=== PATIENT | female | born 2000 | race American Indian/Alaskan Native ===

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

== ENCOUNTER 2021-03-25 13:24 | Outpatient (CLI) | payer OTHER ==
[2021-03-25 13:54] VITALS: BP 114/71
[2021-03-25 14:41] LABS: Bacteria,Urine 1+ /HPF (Negative); Bilirubin,Urine NEG (Negative); Blood,Urine NEG (Negative); Color,Urine Yellow (Yellow); Protein,Urine <15 mg/dL mg/dL (Negative); Urobilinogen,Urine < 2.0 mg/dL (<2.0)
== END 2021-03-25 15:53 | disposition home or self-care (01) ==
LOC: TRG 13:24 → APU 13:27 → TRG 15:53
PROVIDERS: ATTEND Obstetrics & Gynecology
DX: O26.893 Other specified pregnancy related conditions, third trimester (principal); R10.9 Unspecified abdominal pain; Z3A.33 33 weeks gestation of pregnancy
CPT/HCPCS: 59025; 81001; 87086

== ENCOUNTER 2021-03-29 22:39 | Observation (INO) | payer OTHER ==
[2021-03-30] MEDS ORDERED: LACTATED RINGERS 1,000 ML IV ONE (00:15)
[2021-03-30] MEDS ORDERED: NIFEdipine*For Tocolysis only* 10 MG CAPSULE PO ONE (01:12)
[2021-03-30] MEDS ORDERED: DOCUSATE SODIUM 100 MG CAP PO PRN (01:23)
[2021-03-30] MEDS ORDERED: MAGNESIUM HYDROXIDE (MOM) ORAL LIQD UDC PO PRN (01:23)
[2021-03-30] MEDS ORDERED: ONDANSETRON 4 MG/2 ML INJ IV PRN (01:23)
[2021-03-30] MEDS ORDERED: ALUM-MAG HYDROXIDE-SIMETHICONE 200-200-20MG/5ML ORAL LIQD 30 ML PO PRN (01:23)
[2021-03-30] MEDS ORDERED: ACETAMINOPHEN 500 MG TAB PO PRN (01:23)
[2021-03-30] MEDS ORDERED: diphenhydrAMINE 25 MG CAP PO PRN (01:23)
[2021-03-30 01:42] LABS: Bilirubin,Urine NEG (Negative); Blood,Urine MOD (Negative); Color,Urine Straw (Yellow); Protein,Urine <15 mg/dL mg/dL (Negative); Urobilinogen,Urine < 2.0 mg/dL (<2.0)
[2021-03-30 01:56] LABS: RBC,Urine < 1.0 /HPF (0.0-6.0); WBC,Urine < 1.0 /HPF (0.0-6.0)
--- NOTE | 2021-03-30 02:34 | History and Physical Report ---
History of Present Illness Date of examination: 03/30/21 Date of admission: 03/30/2021 Chief complaint: I've been having some vaginal spotting and contractions. History of present illness: Pt is a @ 34.1 wks who presented to triage with c/o contractions and spot ting. States that she notices spotting only when she is wiping. Contractions have been 1-2 minutes. Pt with continued ctxs despite interventions. Pt states that she has not had any water to drink. HILARY resulted as 6.6 Pt denies s/sx of SROM. Consulted with Dr. Hill. Will admit for observation. EDC Confirmation: 05/10/2021 Gestational Age: 34.1 weeks on admission Past History : 1 Term Births: 0 Premature Births: 0 Living Children: 0 Mult. Births: 0 Prev : 0 Elect. Ab: 0 Spont. Ab: 0 Ectopics: 0 Past Medical History: Reviewed history from 12/28/2019 and no changes required: G E R D s/p endoscopy (2019) Past Surgical History: Reviewed history from 11/14/2016 and no changes required: Negative Past Surgical History Family History Summary: First Degree Blood Relative - Has No Known Family History - Entered On: 09/19/2020 Risk Factors: Counseled to Quit/Cut Down: yes HIV High Risk Behavior: no Seatbelt Use: 100 % No Dietary Counseling Reason: pn yes Alcohol Use: no Drug Use: no Past Medical History Surgery (Non-cake wrapper): Negative Past Surgical History Abnormal PAP: negative LUIS Exposure: negative Infertility: negative Uterine Anomaly: negative Uterine Surgery (not C/S): negative Social Hx: Patient is single Smoking History: Patient has never smoked. student no E/T/D sexually active Infection History Hx of STD: none HIV Risk Eval: no Hepatitis B Risk Eval: low risk Genetic History Congenital Heart Defect: Mom: no Dad: no Obi Disease: Mom: no Dad: no Thalassemia Mom: no Dad: no Neural Tube Defect Mom: no Dad: no Down's Syndrome Mom: no Dad: no Hai-Sachs Mom: no Dad: no Sickle Cell Disease/Trait Mom: no Dad: no Hemophilia Mom: no Dad: no Muscular Dystrophy Mom: no Dad: no Cystic Fibrosis Mom: no Dad: no Moody Chorea Mom: no Dad: no Mental Retardation Mom: no Dad: no Fragile X Mom: no Dad: no Other Genetic/Chromosomal Disorder Mom: no Dad: no Child w/other defect Mom: no Dad: no Enviromental Exposures Xray Exposure: no Medication, drug, or alcohol use since LMP: no Chemical/Other Exposure: no Exposure to Cat Liter: no Hx of Parvovirus (Fifth Disease): no Occupational Exposure to Children: none Current Allergies: * SHELLFISH (Critical) * PEANUTS (Critical) Laboratory Results Past History Past Medical History: GERD Past Surgical History: other (endoscopy) Family/Genetic History: none Social history: no significant social history - Obstetrical History Expected Date of Delivery: 05/10/21 Actual Gestation: 34 Week(s) 1 Day(s) : 1 Para: 0 Hx # Term Pregnancies: 0 Number of Pregnancies: 0 Spontaneous Abortions: 0 Induced : 0 Number of Living Children: 0 Medications and Allergies Allergies Allergy/AdvReac Type Severity Reaction Status Date / Time peanut Allergy Vomiting Verified 03/25/21 13:56 shellfish derived Allergy Vomiting Verified 03/25/21 13:56 Home Medications Medication Instructions Recorded Confirmed Last Taken Type Pnv,Calcium 72/Iron/Folic Acid 1 tab PO DAILY 03/25/21 03/25/21 03/25/21 History [M-Josh Plus Tablet] Active Meds: Active Medications Acetaminophen (Acetaminophen 500 Mg Tab) 1,000 mg PO Q6H PRN PRN Reason: Pain MILD(1-3)/Fever >100.5/BRADY Al Hydrox/Mg Hydrox/Simethicone (Alum-Mag Hydroxide-Simethicone 124-225-51cq/5ml Oral Liqd 30 Ml) 30 ml PO Q6H PRN PRN Reason: Indigestion Diphenhydramine HCl (Diphenhydramine 25 Mg Cap) 25 mg PO Q6H PRN PRN Reason: Itching Docusate Sodium (Docusate Sodium 100 Mg Cap) 100 mg PO Q12H PRN PRN Reason: Constipation Magnesium Hydroxide (Magnesium Hydroxide (Mom) Oral Liqd Udc) 30 ml PO QHS PRN PRN Reason: Laxative Effect Multivitamins/Iron/Calcium ( [id number]-[id number] Fumarate-Folic Acid Vit Tab) 1 each PO QDAY VIOLET Ondansetron HCl (Ondansetron 4 Mg/2 Ml Inj) 4 mg IV Q6H PRN PRN Reason: Nausea And Vomiting Review of Systems All systems: negative - Vital Signs Vital signs: Vital Signs Pulse BP Pulse Ox 76 125/77 97 03/29/21 23:35 03/29/21 23:35 03/29/21 23:35 Temp Pulse Resp BP Pulse Ox 99 H 133/63 98 03/30/21 02:29 03/30/21 02:29 03/30/21 02:28 - Physical Exam Breasts: Positive: deferred Cardiovascular: Regular rate Lungs: Positive: Normal air movement Abdomen: Positive: normal appearance, soft Genitourinary (Female): Positive: normal external genitalia, normal perenium Vulva: both: normal Vagina: Positive: other (Moderate amount of yellow discharge seen. No active bleeding seen. ) Cervix: Positive: discharge (Yellow discharge noted. ), friable Uterus: Positive: enlarged (34.1 wks ) Extremities: Positive: normal - Obstetrical FHR: category 1 Uterine Contraction Monitor Mode: External Cervical Dilatation: 0 (Appears closed on speculum. ) Uterine Contraction Pattern: Regular Uterine Tone Measurement Phase: Resting Uterine Contraction Intensity: Mild Results All other labs normal. GBS UNKNOWN HBsAg Screen Negative Negative *1 RPR Non Reactive Non Reactive *2 Rubella Antibodies, IgG [L] <0.90 index Immune >0.99 *3 Non-immune <0.90 Equivocal 0.90 - 0.99 Immune >0.99 ABO Grouping O *4 Rh Factor Positive *5 Please note: Prior records for this patient's ABO / Rh type are not available for additional verification. Antibody Screen Negative Negative *6 WBC 9.9 x10E3/uL 3.4-10.8 *7 RBC 4.11 x10E6/uL 3.77-5.28 *8 Hemoglobin 12.1 g/dL 11.1-15.9 *9 Hematocrit 38.2 % 34.0-46.6 *10 MCV 93 fL 79-97 *11 MCH 29.4 pg 26.6-33.0 *12 MCHC 31.7 g/dL 31.5-35.7 *13 RDW 13.2 % 11.7-15.4 *14 Platelets 288 x10E3/uL 150-450 *15 Neutrophils 66 % Not Estab. *16 Lymphs 26 % Not Estab. *17 Monocytes 6 % Not Estab. *18 Eos 2 % Not Estab. *19 Basos 0 % Not Estab. *20 ! Immature Cells <No Reported Value> *21 Neutrophils (Absolute) 6.6 x10E3/uL 1.4-7.0 *22 Lymphs (Absolute) 2.6 x10E3/uL 0.7-3.1 *23 Monocytes(Absolute) 0.6 x10E3/uL 0.1-0.9 *24 Eos (Absolute) 0.2 x10E3/uL 0.0-0.4 *25 Baso (Absolute) 0.0 x10E3/uL 0.0-0.2 *26 ! Immature Granulocytes 0 % Not Estab. *27 ! Immature Grans (Abs) 0.0 x10E3/uL 0.0-0.1 *28 ! NRBC <No Reported Value> *29 Hematology Comments: <No Reported Value> *30 Tests: (2) HB Solu + Rflx Frac (225697) Hemoglobin (Hgb) Solubility Negative Negative *31 Tests: (3) HIV Ag/Ab with Reflex (191963) HIV Screen 4th Generation wRfx Non Reactive Non Reactive *32 Tests: (4) HCV Antibody reflex to ABNER ([id number]) HCV Ab <0.1 s/co ratio 0.0-0.9 *33 Tests: (5) Interpretation: ([id number]) ! Interpretation: SPRCS *34 Negative Not infected with HCV, unless recent infection is suspected or other evidence exists to indicate HCV infection. Assessment and Plan A: 20 y.o. @ 34.1 wks, contractions. HILARY of 6.6 on u/s during triage visit. - Patient Problems (1) labor in third trimester Current Visit: Yes Status: Acute Qualifiers: labor delivery status: without delivery Qualified Code(s): O60.03 - labor without delivery, third trimester Plan to address problem: Admit to labor and delivery for observation. Initiate IV. Continue with IV fluid resuscitation. Draw admission labs. GC/CH sample sent to lab. Ultrasound to check for placental location, abruption, HILARY. Wet prep collected and sent to lab. (2) with 34 completed weeks gestation Current Visit: Yes Status: Acute Plan to address problem: Contiguous EFM. Continue to monitor status though EFM. (3) Amniotic fluid index borderline low Current Visit: Yes Status: Acute Plan to address problem: HILARY 6.6 on u/s today. Repeat u/s ordered for 1400.
--- NOTE | 2021-03-30 02:37 | Ultrasound Report ---
ULTRASOUND OBSTETRIC LIMITED INDICATION / CLINICAL INFORMATION: r/o placental abruption, Cervical length, full HILARY. Clinical Gestational Age (GA) in weeks, days: 34, 7 TECHNIQUE: Transabdominal. COMPARISON: None available. FINDINGS: HEART RATE (beats per minute): 138 AMNIOTIC FLUID INDEX (cm) = 6.6 (normal = 7-24 cm) PRESENTATION: Cephalic. Single fetus. ADDITIONAL FINDINGS: Placenta within the fundus, grade 1. No evidence of placental abruption. Cervix as measured 3.1 cm. Endocervical canal is not well-visualized. IMPRESSION: 1. No evidence of abruption. 2. Single fetus with heart rate of 138 bpm. Signer Name: Akira Danielle II, MD Signed: 03/30/2021 2:32 AM Workstation Name: [id number]
[2021-03-30] MEDS ORDERED: NIFEdipine*For Tocolysis only* 10 MG CAPSULE PO SCH (03:00)
[2021-03-30] MEDS: LACTATED RINGERS 1,000 ML IV SCH ×2 (06:38→14:25)
--- NOTE | 2021-03-30 08:04 | Progress Note ---
Assessment and Plan Pt denies contractions, LOF, and VB at this time. Reports +FM. Pt is s/p Procardia dose; VSSAF, FHT's cat 1. POC reviewed with pt for repeat ultrasound this afternoon. Questions encouraged. No questions voiced. Pt verbalizes understanding. A: IUP @34.1 weeks Oligohydramnios, HILARY 6.6 P: continuous efm and toco Continue with IV fluids @125mL/hr Pt may eat breakfast GC/CH pending Repeat US today Wet prep WNL monitor for ssx of labor - Patient Problems (1) Amniotic fluid index borderline low Current Visit: Yes Status: Acute (2) with 34 completed weeks gestation Current Visit: Yes Status: Acute (3) labor in third trimester Current Visit: Yes Status: Acute Qualifiers: labor delivery status: without delivery Qualified Code(s): O60.03 - labor without delivery, third trimester (4) Rubella non-immune status, antepartum Current Visit: Yes Status: Acute Subjective - Subjective Date of service: 03/30/21 Principal diagnosis: IUP @34.1, Oligo Patient reports: movement normal, no new complaints, no loss of fluid, no vaginal bleeding, no contractions Objective - Vital Signs Vital Signs: Vital Signs - 12hr 03/29/21 03/29/21 03/29/21 23:35 23:40 23:45 Temperature Pulse Rate 76 77 78 Respiratory Rate Blood Pressure 125/77 O2 Sat by Pulse 97 96 97 Oximetry O2 Sat by Pulse Oximetry [ Bilateral] 03/29/21 03/29/21 03/30/21 23:50 23:55 00:00 Temperature Pulse Rate 77 82 75 Respiratory Rate Blood Pressure O2 Sat by Pulse 96 96 97 Oximetry O2 Sat by Pulse Oximetry [ Bilateral] 03/30/21 03/30/21 03/30/21 00:05 00:10 00:15 Temperature Pulse Rate 76 81 92 H Respiratory Rate Blood Pressure O2 Sat by Pulse 98 100 100 Oximetry O2 Sat by Pulse Oximetry [ Bilateral] 03/30/21 03/30/21 03/30/21 00:20 00:25 00:30 Temperature Pulse Rate 75 80 81 Respiratory Rate Blood Pressure O2 Sat by Pulse 99 97 98 Oximetry O2 Sat by Pulse Oximetry [ Bilateral] 03/30/21 03/30/21 03/30/21 00:39 00:44 00:49 Temperature Pulse Rate 76 75 65 Respiratory Rate Blood Pressure O2 Sat by Pulse 99 98 97 Oximetry O2 Sat by Pulse Oximetry [ Bilateral] 03/30/21 03/30/21 03/30/21 00:54 00:59 01:04 Temperature Pulse Rate 72 62 73 Respiratory Rate Blood Pressure O2 Sat by Pulse 96 97 99 Oximetry O2 Sat by Pulse Oximetry [ Bilateral] 03/30/21 03/30/21 03/30/21 01:09 01:14 01:19 Temperature Pulse Rate 65 76 72 Respiratory Rate Blood Pressure O2 Sat by Pulse 97 98 98 Oximetry O2 Sat by Pulse Oximetry [ Bilateral] 03/30/21 03/30/21 03/30/21 01:24 01:29 01:34 Temperature Pulse Rate 69 65 71 Respiratory Rate Blood Pressure O2 Sat by Pulse 98 98 100 Oximetry O2 Sat by Pulse Oximetry [ Bilateral] 03/30/21 03/30/21 03/30/21 01:39 01:44 01:49 Temperature Pulse Rate 71 71 76 Respiratory Rate Blood Pressure O2 Sat by Pulse 99 99 98 Oximetry O2 Sat by Pulse Oximetry [ Bilateral] 03/30/21 03/30/21 03/30/21 01:54 01:59 02:04 Temperature Pulse Rate 94 H 98 H 98 H Respiratory Rate Blood Pressure O2 Sat by Pulse 97 97 98 Oximetry O2 Sat by Pulse Oximetry [ Bilateral] 03/30/21 03/30/21 03/30/21 02:06 02:28 02:29 Temperature Pulse Rate 110 H 98 H 99 H Respiratory Rate Blood Pressure 133/63 O2 Sat by Pulse 94 98 Oximetry O2 Sat by Pulse Oximetry [ Bilateral] 03/30/21 03/30/21 03/30/21 02:33 02:38 02:43 Temperature Pulse Rate 94 H 89 90 Respiratory Rate Blood Pressure O2 Sat by Pulse 99 97 96 Oximetry O2 Sat by Pulse Oximetry [ Bilateral] 03/30/21 03/30/21 03/30/21 02:46 02:48 02:53 Temperature Pulse Rate 81 80 82 Respiratory Rate Blood Pressure O2 Sat by Pulse 94 96 96 Oximetry O2 Sat by Pulse Oximetry [ Bilateral] 03/30/21 03/30/21 03/30/21 02:58 03:03 03:08 Temperature Pulse Rate 87 102 H 84 Respiratory Rate Blood Pressure O2 Sat by Pulse 95 98 97 Oximetry O2 Sat by Pulse Oximetry [ Bilateral] 03/30/21 03/30/21 03/30/21 03:13 03:18 03:23 Temperature Pulse Rate 84 88 99 H Respiratory Rate Blood Pressure O2 Sat by Pulse 97 97 99 Oximetry O2 Sat by Pulse Oximetry [ Bilateral] 03/30/21 03/30/21 03/30/21 03:28 03:33 03:38 Temperature Pulse Rate 100 H 95 H 100 H Respiratory Rate Blood Pressure O2 Sat by Pulse 97 99 99 Oximetry O2 Sat by Pulse Oximetry [ Bilateral] 03/30/21 03/30/21 03/30/21 03:46 03:47 03:52 Temperature Pulse Rate 102 H 76 73 Respiratory Rate Blood Pressure O2 Sat by Pulse 81 L 100 97 Oximetry O2 Sat by Pulse Oximetry [ Bilateral] 03/30/21 03/30/21 03/30/21 03:57 04:02 04:07 Temperature Pulse Rate 70 73 70 Respiratory Rate Blood Pressure O2 Sat by Pulse 95 96 95 Oximetry O2 Sat by Pulse Oximetry [ Bilateral] 03/30/21 03/30/21 03/30/21 04:12 04:17 04:22 Temperature Pulse Rate 72 72 73 Respiratory Rate Blood Pressure O2 Sat by Pulse 95 96 95 Oximetry O2 Sat by Pulse Oximetry [ Bilateral] 03/30/21 03/30/21 03/30/21 04:27 04:32 04:37 Temperature Pulse Rate 72 71 69 Respiratory Rate Blood Pressure O2 Sat by Pulse 95 96 96 Oximetry O2 Sat by Pulse Oximetry [ Bilateral] 03/30/21 03/30/21 03/30/21 04:42 04:47 05:05 Temperature 98.7 F Pulse Rate 72 72 75 Respiratory 18 Rate Blood Pressure O2 Sat by Pulse 98 97 99 Oximetry O2 Sat by Pulse 99 Oximetry [ Bilateral] 03/30/21 03/30/21 03/30/21 05:06 06:18 06:23 Temperature Pulse Rate 74 65 80 Respiratory Rate Blood Pressure 121/84 O2 Sat by Pulse 98 96 Oximetry O2 Sat by Pulse Oximetry [ Bilateral] 03/30/21 03/30/21 03/30/21 06:28 06:33 06:35 Temperature Pulse Rate 72 72 73 Respiratory Rate Blood Pressure O2 Sat by Pulse 96 95 94 Oximetry O2 Sat by Pulse Oximetry [ Bilateral] 03/30/21 03/30/21 03/30/21 06:38 06:43 06:48 Temperature Pulse Rate 71 77 64 Respiratory Rate Blood Pressure O2 Sat by Pulse 95 97 98 Oximetry O2 Sat by Pulse Oximetry [ Bilateral] 03/30/21 03/30/21 03/30/21 06:53 07:07 07:12 Temperature Pulse Rate 63 74 71 Respiratory Rate Blood Pressure O2 Sat by Pulse 98 100 98 Oximetry O2 Sat by Pulse Oximetry [ Bilateral] 03/30/21 03/30/21 03/30/21 07:17 07:21 07:22 Temperature Pulse Rate 72 77 79 Respiratory Rate Blood Pressure O2 Sat by Pulse 97 86 98 Oximetry O2 Sat by Pulse Oximetry [ Bilateral] 03/30/21 03/30/21 03/30/21 07:27 07:32 07:37 Temperature Pulse Rate 77 79 74 Respiratory Rate Blood Pressure O2 Sat by Pulse 97 96 96 Oximetry O2 Sat by Pulse Oximetry [ Bilateral] 03/30/21 03/30/21 03/30/21 07:42 07:47 07:52 Temperature Pulse Rate 80 87 83 Respiratory Rate Blood Pressure O2 Sat by Pulse 95 95 98 Oximetry O2 Sat by Pulse Oximetry [ Bilateral] 03/30/21 07:57 Temperature Pulse Rate 73 Respiratory Rate Blood Pressure O2 Sat by Pulse 97 Oximetry O2 Sat by Pulse Oximetry [ Bilateral] - Exam Breasts: deferred Cardiovascular: Regular rate Lungs: Normal air movement Abdomen: Present: normal appearance. Absent: tenderness, guarding Uterus: Present: other (gravid) FHR: auscultation normal, category 1 Uterine Contraction Monitor Mode: External Uterine Contraction Pattern: Absent Extremities: normal - Labs Labs: Laboratory Results - last 24 hr 03/30/21 Unknown Urine Color Straw Urine Turbidity Clear Urine pH 6.0 Ur Specific [place] 1.003 Urine Protein <15 mg/dl Urine Glucose (UA) Neg Urine Ketones Neg Urine Blood Mod Urine Nitrite Neg Urine Bilirubin Neg Urine Urobilinogen < 2.0 Ur Leukocyte Esterase Neg Urine WBC (Auto) < 1.0 Urine RBC (Auto) < 1.0
[2021-03-30 08:11] LABS: Basophils % (Auto) 0.4 % (0.0-1.8); Eosinophils # (Auto) 0.2 K/mm3 (0.0-0.4); Eosinophils % (Auto) 1.8 % (0.0-4.3); Hematocrit 34.4 % (30.3-42.9); Hemoglobin 11.6 gm/dl (10.1-14.3); Lymphocytes # (Auto) 2.5 K/mm3 (1.2-5.4); Lymphocytes % (Auto) 24.6 % (13.4-35.0); Mean Corpuscular HGB Conc 34 % (30-34); Mean Corpuscular Volume 92 fl (79-97); Monocytes # (Auto) 0.7 K/mm3 (0.0-0.8); Monocytes % (Auto) 6.8 % (0.0-7.3); Platelet Count 257 K/mm3 (140-440); Red Blood Count 3.74 M/mm3 (3.65-5.03); Red Cell Distribution Width 13.2 % (13.2-15.2)
[2021-03-30] MEDS ORDERED: PRENATAL VIT27-FE FUMARATE-FOLIC ACID VIT TAB PO SCH (10:00)
--- NOTE | 2021-03-30 17:45 | Ultrasound Report ---
US OB LIMITED INDICATION / CLINICAL INFORMATION: Full HILARY. COMPARISON: Earlier today at 1:37 AM. FINDINGS: The HILARY is 13.4 cm with the largest pocket measuring 5.8 cm. The HILARY was 6.6 cm previously. presentation is cephalic. The heart rate is 112 bpm. Signer Name: Ivan Quiñones MD Signed: 03/30/2021 5:41 PM Workstation Name: [email or web address]
--- NOTE | 2021-03-30 17:57 | Discharge Summary ---
Providers - Providers Date of Admission: 03/30/21 01:23 Date of discharge: 03/30/21 Attending physician: PETR MIKE MD Primary care physician: PETR MIKE MD Hospitalization Reason for admission: IUP - , observation Discharge diagnosis: other (IUP ) Condition at discharge: Good Disposition: 01 HOME / SELF CARE / HOMELESS - Discharge Diagnoses (1) Amniotic fluid index borderline low Status: Acute Comment: HILARY now 13.8; Dr Rae made aware. Pt ok to discharge home. (2) with 34 completed weeks gestation Status: Acute (3) labor in third trimester Status: Acute Qualifiers: labor delivery status: without delivery Qualified Code(s): O60.03 - labor without delivery, third trimester (4) Rubella non-immune status, antepartum Status: Acute Plan - Provider Discharge Summary Activity: routine Diet: routine Instructions: routine Additional instructions: [] Smoking cessation referral if applicable(refer to patient education folder for contact #) [] Refer to [facility]'s [facility] Booklet Call your doctor immediately for: * Fever > 100.5 * vaginal bleeding * Severe persistent headache * Shortness of breath * Reddened, hot, painful area to leg or breast * leaking fluid suspicious of membrane rupture * more than 6 contractions per hour Please keep scheduled appointment next week for follow up visit with [facility]. Thank you! - Follow up plan Follow up: PETR MIKE MD [Primary Care Provider] - 7 Days
[2021-03-30 18:04] VITALS: BP 126/73
== END 2021-03-30 18:05 | disposition home or self-care (01) ==
LOC: TRG 22:39 → APU 23:07 → LD 03-30 01:23 → TRG 03-30 09:57
PROVIDERS: ADMIT Student in an Organized Health Care Education/Training Program; ATTEND Student in an Organized Health Care Education/Training Program
DX: O62.9 Abnormality of forces of labor, unspecified (principal); Z20.822 Contact with and (suspected) exposure to COVID-19; O26.853 Spotting complicating pregnancy, third trimester; O09.93 Supervision of high risk pregnancy, unspecified, third trimester; K21.9 Gastro-esophageal reflux disease without esophagitis; O60.03 Preterm labor without delivery, third trimester; O42.92 Full-term premature rupture of membranes, unspecified as to length of time between rupture and onset of labor; O35.3XX0 Maternal care for (suspected) damage to fetus from viral disease in mother, not applicable or unspecified; B06.9 Rubella without complication; Z3A.34 34 weeks gestation of pregnancy
CPT/HCPCS: 36415; 59025; 76815; 81001; 85025; 86850; 86900; 86901; 87210; 87591; 96360; G0378; J7120; U0003

== ENCOUNTER 2021-03-30 21:18 | Inpatient (IN) | payer OTHER ==
[2021-03-30] MEDS ORDERED: LACTATED RINGERS 1,000 ML ONE (22:16)
[2021-03-30] MEDS ORDERED: LACTATED RINGERS 1,000 ML IV ONE (22:39)
[2021-03-31] MEDS ORDERED: LOPERAMIDE 2 MG CAP PO PRN (00:08)
[2021-03-31] MEDS ORDERED: miSOPROStol 200 MCG TAB PR PRN (00:08)
[2021-03-31] MEDS ORDERED: TERBUTALINE 1 MG/1 ML INJ SUB-Q PRN (00:08)
[2021-03-31] MEDS ORDERED: ACETAMINOPHEN 325 MG TAB PO PRN (00:08)
[2021-03-31] MEDS ORDERED: OXYTOCIN 10 UNIT/1 ML INJ IM PRN (00:08)
[2021-03-31] MEDS ORDERED: MINERAL OIL 30 ML ORAL LIQD PO PRN (00:08)
[2021-03-31] MEDS ORDERED: ePHEDrine SULFATE 50 MG/1 ML INJ IV PRN (00:08)
[2021-03-31] MEDS ORDERED: BUTORPHANOL 2 MG/1 ML INJ IV PRN (00:08)
[2021-03-31] MEDS ORDERED: AMPICILLIN/NS 2 GM/100 ML 2 GM/100 ML BAG IV ONE ×2 (00:08→05:59)
[2021-03-31] MEDS ORDERED: CARBOPROST TROMETHAMINE 250 MCG/1 ML INJ IM PRN (00:08)
[2021-03-31] MEDS ORDERED: LIDOCAINE (2%) 20 MG/1 ML VIAL 20 ML MDV INFILTRATI ONE (00:08)
[2021-03-31] MEDS ORDERED: METHYLERGONOVINE MALEATE 0.2 MG/ML VIAL IM PRN (00:08)
[2021-03-31] MEDS ORDERED: ONDANSETRON 4 MG/2 ML INJ IV PRN (00:08)
--- NOTE | 2021-03-31 00:16 | History and Physical Report ---
History of Present Illness Date of examination: 03/31/21 Date of admission: 03/31/21 Chief complaint: "after I got home I felt a gush of fluid" History of present illness: Past History : 1 Term Births: 0 Premature Births: 0 Living Children: 0 Mult. Births: 0 Prev : 0 Elect. Ab: 0 Spont. Ab: 0 Ectopics: 0 Past Medical History: Reviewed history from 12/28/2019 and no changes required: G E R D s/p endoscopy (2019) Past Surgical History: Reviewed history from 11/14/2016 and no changes required: Negative Past Surgical History Family History Summary: First Degree Blood Relative - Has No Known Family History - Entered On: 09/19/2020 Risk Factors: Counseled to Quit/Cut Down: yes HIV High Risk Behavior: no Seatbelt Use: 100 % No Dietary Counseling Reason: pn yes Alcohol Use: no Drug Use: no Past Medical History Surgery (Non-customs broker): Negative Past Surgical History Abnormal PAP: negative LUIS Exposure: negative Infertility: negative Uterine Anomaly: negative Uterine Surgery (not C/S): negative Social Hx: Patient is single Smoking History: Patient has never smoked. student no E/T/D sexually active Infection History Hx of STD: none HIV Risk Eval: no Hepatitis B Risk Eval: low risk Genetic History Congenital Heart Defect: Mom: no Dad: no Obi Disease: Mom: no Dad: no Thalassemia Mom: no Dad: no Neural Tube Defect Mom: no Dad: no Down's Syndrome Mom: no Dad: no Hai-Sachs Mom: no Dad: no Sickle Cell Disease/Trait Mom: no Dad: no Hemophilia Mom: no Dad: no Muscular Dystrophy Mom: no Dad: no Cystic Fibrosis Mom: no Dad: no [place] Chorea Mom: no Dad: no Mental Retardation Mom: no Dad: no Fragile X Mom: no Dad: no Other Genetic/Chromosomal Disorder Mom: no Dad: no Child w/other defect Mom: no Dad: no Enviromental Exposures Xray Exposure: no Medication, drug, or alcohol use since LMP: no Chemical/Other Exposure: no Exposure to Cat Liter: no Hx of Parvovirus (Fifth Disease): no Occupational Exposure to Children: none Current Allergies: * SHELLFISH (Critical) * PEANUTS (Critical) Laboratory Results Past History Past Medical History: GERD Past Surgical History: other (endoscopy) Family/Genetic History: none Social history: no significant social history - Obstetrical History Expected Date of Delivery: 05/10/21 Actual Gestation: 34 Week(s) 2 Day(s) : 1 Para: 0 Hx # Term Pregnancies: 0 Number of Pregnancies: 0 Spontaneous Abortions: 0 Induced : 0 Number of Living Children: 0 Medications and Allergies Allergies Allergy/AdvReac Type Severity Reaction Status Date / Time peanut Allergy Vomiting Verified 03/25/21 13:56 shellfish derived Allergy Vomiting Verified 03/25/21 13:56 Home Medications Medication Instructions Recorded Confirmed Last Taken Type Pnv,Calcium 72/Iron/Folic Acid 1 tab PO DAILY 03/25/21 03/25/21 03/25/21 History [M- Plus Tablet] Active Meds: Active Medications Ephedrine Sulfate (Ephedrine Sulfate 50 Mg/1 Ml Inj) 10 mg IV Q2M PRN PRN Reason: Hypotension Lactated Ringer's (Lactated Ringers) 1,000 mls @ 125 mls/hr IV DIRECT VIOLET Lidocaine (Lidocaine (2%) 20 Mg/1 Ml Vial 20 Ml Mdv) 20 ml INFILTRATI ONCE ONE Stop: 03/31/21 00:09 Mineral Oil (Mineral Oil 30 Ml Oral Liqd) 30 ml PO QHS PRN PRN Reason: Constipation Terbutaline Sulfate (Terbutaline 1 Mg/1 Ml Inj) 0.25 mg SUB-Q ONCE PRN PRN Reason: Hyperstimulation/Hypertonicity Review of Systems All systems: negative Genitourinary: leakage of fluid, contractions - Vital Signs Vital signs: Vital Signs Pulse Pulse Ox 68 96 03/30/21 21:47 03/30/21 21:47 Temp Pulse Resp BP Pulse Ox 67 166/106 99 03/31/21 00:12 03/31/21 00:02 03/31/21 00:12 - Physical Exam Breasts: Positive: deferred Cardiovascular: Regular rate Lungs: Positive: Normal air movement Abdomen: Positive: normal appearance, soft. Negative: tenderness, guarding Genitourinary (Female): Positive: normal external genitalia, normal perenium Vulva: both: normal Vagina: Positive: normal moisture Cervix: Positive: friable Anus/Rectum: Positive: normal perianal skin Extremities: Positive: normal - Obstetrical FHR: auscultation normal, category 1 Uterine Contraction Monitor Mode: External Cervical Dilatation: 1.5 Cervical Effacement Percentage: 30 station: -2 Uterine Contraction Pattern: Regular Uterine Tone Measurement Phase: Resting Results Abnormal lab results 03/30/21 Range/Units 21:30 Membranes Rupture Positive A (Negative) All other labs normal. GBS UNKNOWN HBsAg Screen Negative Negative *1 RPR Non Reactive Non Reactive *2 Rubella Antibodies, IgG [L] <0.90 index Immune >0.99 *3 Non-immune <0.90 Equivocal 0.90 - 0.99 Immune >0.99 ABO Grouping O *4 Rh Factor Positive *5 Please note: Prior records for this patient's ABO / Rh type are not available for additional verification. Antibody Screen Negative Negative *6 WBC 9.9 x10E3/uL 3.4-10.8 *7 RBC 4.11 x10E6/uL 3.77-5.28 *8 Hemoglobin 12.1 g/dL 11.1-15.9 *9 Hematocrit 38.2 % 34.0-46.6 *10 MCV 93 fL 79-97 *11 MCH 29.4 pg 26.6-33.0 *12 MCHC 31.7 g/dL 31.5-35.7 *13 RDW 13.2 % 11.7-15.4 *14 Platelets 288 x10E3/uL 150-450 *15 Neutrophils 66 % Not Estab. *16 Lymphs 26 % Not Estab. *17 Monocytes 6 % Not Estab. *18 Eos 2 % Not Estab. *19 Basos 0 % Not Estab. *20 ! Immature Cells <No Reported Value> *21 Neutrophils (Absolute) 6.6 x10E3/uL 1.4-7.0 *22 Lymphs (Absolute) 2.6 x10E3/uL 0.7-3.1 *23 Monocytes(Absolute) 0.6 x10E3/uL 0.1-0.9 *24 Eos (Absolute) 0.2 x10E3/uL 0.0-0.4 *25 Baso (Absolute) 0.0 x10E3/uL 0.0-0.2 *26 ! Immature Granulocytes 0 % Not Estab. *27 ! Immature Grans (Abs) 0.0 x10E3/uL 0.0-0.1 *28 ! NRBC <No Reported Value> *29 Hematology Comments: <No Reported Value> *30 Tests: (2) HB Solu + Rflx Frac (939938) Hemoglobin (Hgb) Solubility Negative Negative *31 Tests: (3) HIV Ag/Ab with Reflex ([id number]) HIV Screen 4th Generation wRfx Non Reactive Non Reactive *32 Tests: (4) HCV Antibody reflex to ABNER ([id number]) HCV Ab <0.1 s/co ratio 0.0-0.9 *33 Tests: (5) Interpretation: ([id number]) ! Interpretation: SPRCS *34 Negative Not infected with HCV, unless recent infection is suspected or other evidence exists to indicate HCV infection. Assessment and Plan Pt reports when she got home she felt a gush of fluid. Speculum exam with small amount of vaginal pooling, clear fluid, cervix appears red and friable and cervical tissue started to bleed scantly when speculum adjusted. Dr. Rae notified and orders received for digital vaginal exam, IV antibiotics, and admit to labor. SVE 1.5/-2. Orders placed in EMR BP elevated after pt told she is ruptured. Repeat BP 147/89. Pt denies history of elevated BPs. CBC and urinalysis reviewed from 03/30/21, unremarkeable. Preeclampsia labs ordered. Dr. Rae made aware. New orders received for 24hr urine and Magnesium Sulfate IV. - Patient Problems (1) premature rupture of membranes Current Visit: Yes Status: Acute Plan to address problem: IV antibiotics ordered q4h monitor for changes in vital signs monitor for ssx of chorioamnionitis (2) with 34 completed weeks gestation Current Visit: No Status: Acute (3) labor in third trimester Current Visit: No Status: Acute Qualifiers: labor delivery status: without delivery Qualified Code(s): O60.03 - labor without delivery, third trimester Plan to address problem: continuous efm and toco BMZ ordered monitor for signs of distress, anticipate delivery NICU notified and consult ordered (4) Rubella non-immune status, antepartum Current Visit: No Status: Acute Plan to address problem: Plan to offer vaccination
[2021-03-31] MEDS ORDERED: MAGNESIUM SULFATE 4 GM/100 ML BAG IV ONE (00:57)
[2021-03-31] MEDS ORDERED: OXYTOCIN DRIP 30 UNITS/500 ML BAG IV SCH (01:00)
[2021-03-31] MEDS: LACTATED RINGERS 1,000 ML IV SCH ×2 (01:28→16:54)
[2021-03-31] MEDS: MAGNESIUM SULFATE 40GM/1000ML 40 GM/1,000 ML BAG IV SCH (02:23)
[2021-03-31] MEDS: AMPICILLIN/NS 1 GM/50 ML 1 GM/50 ML BAG IV SCH ×4 (02:26→18:53)
[2021-03-31] MEDS: BETAMET ACET/BETAMET NA PH 6 MG/ML INJ 5 ML MDV IM SCH (02:36)
[2021-03-31 02:50] LABS: Hemoglobin 11.8 gm/dl (10.1-14.3); Mean Corpuscular HGB Conc 35 % (30-34); Mean Corpuscular Volume 91 fl (79-97); Platelet Count 272 K/mm3 (140-440); Red Blood Count 3.75 M/mm3 (3.65-5.03)
[2021-03-31 03:03] LABS: Alanine Aminotransferase 6 units/L (7-56); Uric Acid 5.4 mg/dL (3.5-7.6)
[2021-03-31] MEDS ORDERED: AMPICILLIN 1 GM in SODIUM CHLORIDE 0.9% 50 ML IV SCH (04:00)
--- NOTE | 2021-03-31 08:21 | Progress Note ---
Assessment and Plan - Patient Problems (1) premature rupture of membranes Current Visit: Yes Status: Acute Plan to address problem: Latency antibiotics started BMZ x2 ordered. S/p 1 st dose Discussed with patient plan for IOL vs expectant management following completion of steroids. Will continue to monitor for signs of infection or distress (2) Rubella non-immune status, antepartum Current Visit: No Status: Acute Plan to address problem: MMR (3) Elevated blood pressure affecting , antepartum Current Visit: Yes Status: Acute Plan to address problem: Patient with elevated blood pressure at time of admission, currently on Mag SO4. 24 hr urine in process Will continue to monitor Subjective - Subjective Date of service: 03/31/21 Principal diagnosis: PPROM Interval history: Patient is a at 34w2d admitted with PPROM. Voices no complaints at this time. +FM. Some leakage and irregular contractions. Denies vaginal bleeding. Objective - Vital Signs Vital Signs: Vital Signs - 12hr 03/30/21 03/30/21 03/30/21 21:47 21:52 21:57 Temperature Pulse Rate 68 64 63 Respiratory Rate Blood Pressure O2 Sat by Pulse 96 97 98 Oximetry 03/30/21 03/30/21 03/30/21 22:01 22:02 22:07 Temperature Pulse Rate 57 L 67 63 Respiratory Rate Blood Pressure 137/88 O2 Sat by Pulse 97 97 Oximetry 03/30/21 03/30/21 03/30/21 22:12 22:17 22:22 Temperature Pulse Rate 63 76 62 Respiratory Rate Blood Pressure O2 Sat by Pulse 95 98 98 Oximetry 03/30/21 03/30/21 03/30/21 22:27 22:30 22:32 Temperature Pulse Rate 58 L 83 69 Respiratory Rate Blood Pressure 126/87 O2 Sat by Pulse 97 89 97 Oximetry 03/30/21 03/30/21 03/30/21 22:37 22:42 22:47 Temperature Pulse Rate 61 61 63 Respiratory Rate Blood Pressure O2 Sat by Pulse 98 98 98 Oximetry 03/30/21 03/30/21 03/30/21 22:52 22:57 23:02 Temperature Pulse Rate 63 60 65 Respiratory Rate Blood Pressure 132/88 O2 Sat by Pulse 97 96 96 Oximetry 03/30/21 03/30/21 03/30/21 23:07 23:12 23:17 Temperature Pulse Rate 63 64 63 Respiratory Rate Blood Pressure O2 Sat by Pulse 96 97 97 Oximetry 03/30/21 03/30/21 03/30/21 23:21 23:32 23:37 Temperature Pulse Rate 95 H 73 71 Respiratory Rate Blood Pressure O2 Sat by Pulse 93 99 98 Oximetry 03/30/21 03/30/21 03/30/21 23:42 23:47 23:52 Temperature Pulse Rate 63 60 70 Respiratory Rate Blood Pressure O2 Sat by Pulse 98 98 97 Oximetry 03/30/21 03/31/21 03/31/21 23:57 00:02 00:07 Temperature Pulse Rate 64 75 71 Respiratory Rate Blood Pressure 166/106 O2 Sat by Pulse 97 97 99 Oximetry 03/31/21 03/31/21 03/31/21 00:12 00:17 01:29 Temperature 98.8 F Pulse Rate 67 65 Respiratory Rate Blood Pressure O2 Sat by Pulse 99 98 Oximetry 03/31/21 03/31/21 03/31/21 02:20 03:13 03:18 Temperature 98.9 F Pulse Rate 75 76 Respiratory 20 Rate Blood Pressure O2 Sat by Pulse 95 96 Oximetry 03/31/21 03/31/21 03/31/21 03:23 03:28 03:33 Temperature 98.7 F Pulse Rate 77 78 76 Respiratory 18 Rate Blood Pressure 105/57 O2 Sat by Pulse 96 96 95 Oximetry 03/31/21 03/31/21 03/31/21 03:38 03:43 03:48 Temperature Pulse Rate 81 82 81 Respiratory Rate Blood Pressure O2 Sat by Pulse 95 95 95 Oximetry 03/31/21 03/31/21 03/31/21 03:53 03:58 04:03 Temperature Pulse Rate 81 80 80 Respiratory Rate Blood Pressure O2 Sat by Pulse 95 95 95 Oximetry 03/31/21 03/31/21 03/31/21 04:08 04:13 04:14 Temperature Pulse Rate 81 92 H 76 Respiratory Rate Blood Pressure O2 Sat by Pulse 97 95 94 Oximetry 03/31/21 03/31/21 03/31/21 04:18 04:23 04:24 Temperature 98.4 F Pulse Rate 78 80 82 Respiratory 18 Rate Blood Pressure 110/59 O2 Sat by Pulse 96 96 96 Oximetry 03/31/21 03/31/21 03/31/21 04:28 04:33 04:38 Temperature Pulse Rate 91 H 77 76 Respiratory Rate Blood Pressure O2 Sat by Pulse 96 96 96 Oximetry 03/31/21 03/31/21 03/31/21 04:43 04:48 04:52 Temperature Pulse Rate 78 76 75 Respiratory Rate Blood Pressure O2 Sat by Pulse 96 96 94 Oximetry 03/31/21 03/31/21 03/31/21 04:53 04:56 04:58 Temperature Pulse Rate 80 77 77 Respiratory Rate Blood Pressure 110/63 O2 Sat by Pulse 96 95 Oximetry 03/31/21 03/31/21 03/31/21 05:03 05:05 05:08 Temperature Pulse Rate 79 86 83 Respiratory Rate Blood Pressure O2 Sat by Pulse 95 94 95 Oximetry 03/31/21 03/31/21 03/31/21 05:13 05:18 05:19 Temperature Pulse Rate 88 86 81 Respiratory Rate Blood Pressure O2 Sat by Pulse 97 95 87 Oximetry 03/31/21 03/31/21 03/31/21 05:23 05:26 05:28 Temperature Pulse Rate 90 77 79 Respiratory Rate Blood Pressure 115/66 O2 Sat by Pulse 95 96 Oximetry 03/31/21 03/31/21 03/31/21 05:33 05:38 05:43 Temperature Pulse Rate 77 79 81 Respiratory Rate Blood Pressure O2 Sat by Pulse 96 96 96 Oximetry 03/31/21 03/31/21 03/31/21 05:48 05:53 05:56 Temperature Pulse Rate 81 79 78 Respiratory Rate Blood Pressure 110/62 O2 Sat by Pulse 95 95 Oximetry 03/31/21 03/31/21 03/31/21 05:58 06:00 06:03 Temperature 98.4 F Pulse Rate 81 82 Respiratory 18 Rate Blood Pressure O2 Sat by Pulse 95 96 95 Oximetry 03/31/21 03/31/21 03/31/21 06:07 06:08 06:10 Temperature Pulse Rate 88 83 75 Respiratory Rate Blood Pressure 111/66 O2 Sat by Pulse 94 96 Oximetry 03/31/21 03/31/21 03/31/21 06:13 06:15 06:18 Temperature Pulse Rate 98 H 86 77 Respiratory Rate Blood Pressure O2 Sat by Pulse 97 94 95 Oximetry 03/31/21 03/31/21 03/31/21 06:21 06:23 06:25 Temperature Pulse Rate 82 85 76 Respiratory Rate Blood Pressure 114/67 O2 Sat by Pulse 94 96 Oximetry 03/31/21 03/31/21 03/31/21 06:27 06:28 06:33 Temperature Pulse Rate 84 86 82 Respiratory Rate Blood Pressure O2 Sat by Pulse 93 95 95 Oximetry 03/31/21 03/31/21 03/31/21 06:38 06:43 06:48 Temperature Pulse Rate 87 78 79 Respiratory Rate Blood Pressure O2 Sat by Pulse 94 96 97 Oximetry 03/31/21 03/31/21 03/31/21 06:50 06:53 06:55 Temperature Pulse Rate 74 77 78 Respiratory Rate Blood Pressure O2 Sat by Pulse 93 95 92 Oximetry 03/31/21 03/31/21 03/31/21 06:56 06:58 07:01 Temperature Pulse Rate 75 76 78 Respiratory Rate Blood Pressure 109/64 O2 Sat by Pulse 96 94 Oximetry 03/31/21 03/31/21 03/31/21 07:03 07:08 07:13 Temperature Pulse Rate 77 77 83 Respiratory Rate Blood Pressure O2 Sat by Pulse 94 94 97 Oximetry 03/31/21 03/31/21 03/31/21 07:18 07:23 07:27 Temperature Pulse Rate 84 89 83 Respiratory Rate Blood Pressure 106/57 O2 Sat by Pulse 97 98 Oximetry 03/31/21 03/31/21 03/31/21 07:28 07:33 07:38 Temperature Pulse Rate 78 82 77 Respiratory Rate Blood Pressure O2 Sat by Pulse 97 98 97 Oximetry 03/31/21 03/31/21 03/31/21 07:43 07:48 07:53 Temperature Pulse Rate 79 80 83 Respiratory Rate Blood Pressure O2 Sat by Pulse 98 98 97 Oximetry 03/31/21 03/31/21 03/31/21 07:56 07:58 08:03 Temperature Pulse Rate 80 75 79 Respiratory Rate Blood Pressure 122/79 O2 Sat by Pulse 97 98 Oximetry 03/31/21 03/31/21 03/31/21 08:08 08:13 08:18 Temperature Pulse Rate 77 78 81 Respiratory Rate Blood Pressure O2 Sat by Pulse 97 97 97 Oximetry - Exam Abdomen: Present: soft FHR: category 1 Uterine Contraction Monitor Mode: External Uterine Contraction Pattern: Irregular - Labs Labs: Abnormal Labs 03/30/21 03/31/21 03/31/21 21:30 01:47 01:47 WBC 11.8 H MCHC 35 H RDW 13.0 L ALT 6 L Lactate Dehydrogenase 257 H Membranes Rupture Positive A Laboratory Results - last 24 hr 03/30/21 03/31/21 03/31/21 21:30 01:47 01:47 WBC 11.8 H RBC 3.75 Hgb 11.8 Hct 34.0 MCV 91 MCH 32 MCHC 35 H RDW 13.0 L Plt Count 272 Creatinine Estimated GFR Uric Acid AST ALT Lactate Dehydrogenase Membranes Rupture Positive A Syphilis IgG/IgM Ab Nonreactive Blood Type Antibody Screen 03/31/21 03/31/21 01:47 01:47 WBC RBC Hgb Hct MCV MCH MCHC RDW Plt Count Creatinine 1.0 Estimated GFR > 60 Uric Acid 5.4 AST 16 ALT 6 L Lactate Dehydrogenase 257 H Membranes Rupture Syphilis IgG/IgM Ab Blood Type O POSITIVE Antibody Screen Negative
[2021-03-31] MEDS: PRENATAL VIT27-FE FUMARATE-FOLIC ACID VIT TAB PO SCH (13:13)
[2021-03-31] MEDS: NITROFURANTOIN MONOHYD/M-CRYST 100 MG CAP PO SCH ×2 (13:13→22:14)
--- NOTE | 2021-03-31 14:32 | Consultation ---
Consult Note - Parent Education I met with parent(s) and discussed the following:: Need for NICU admission, Poss ible need for intubation and surfactant or other resp support, Temperature regulation, Head ultrasounds to evaluate IVH, Eye exams for ROP screening, Possible need for IV fluids/TPN and IV antibiotics, Possible need for umbilical lines, Importance of providing breast milk & encouraged pumping aft delivery, Donor breast milk if baby meets criteria after , Slow feeding advancement and monitoring of tolerance. NG/OG feeds, Need to monitor for jaundice, Data for survival & survival without significant co-morbidities Parent(s) demonstrated understanding of all the information:: Yes Assessment and Plan - Assessment Gestation:: 34.2 Additional Comment: Received Betamethasone 1 out of 2; currently on Mag Sulfate; PPROM and GBS unknow; on Ampicillin prophylaxis - Plan Plan: Agree with Mag & steroids Will attend delivery Please call NICU with questions
[2021-04-01] MEDS: BETAMET ACET/BETAMET NA PH 6 MG/ML INJ 5 ML MDV IM SCH (02:43)
[2021-04-01 05:50] LABS: Creatinine,Urine 25.7 mg/dL (0.1-20.0)
[2021-04-01 05:55] LABS: Creatinine 24 Hour,Urine 1.2 (0.8-2.8)
[2021-04-01] MEDS: MAGNESIUM SULFATE 40GM/1000ML 40 GM/1,000 ML BAG IV SCH (06:48)
[2021-04-01] MEDS: NITROFURANTOIN MONOHYD/M-CRYST 100 MG CAP PO SCH ×2 (09:54→22:13)
[2021-04-01] MEDS: PRENATAL VIT27-FE FUMARATE-FOLIC ACID VIT TAB PO SCH (09:54)
[2021-04-01] MEDS: AMPICILLIN/NS 1 GM/50 ML 1 GM/50 ML BAG IV SCH ×5 (09:55→22:48)
--- NOTE | 2021-04-01 11:18 | Progress Note ---
Assessment and Plan - Patient Problems (1) premature rupture of membranes Current Visit: Yes Status: Acute Plan to address problem: Latency antibiotics s/p BMZ x2 S/p NICU consultation Discussed with patient plan for IOL today due to PPROM and PreE. Discussed methods of induction, risks, benefits. Method will likely be low dose pitocin. May complete AM self care and will start IOL this afternoon. Patient voiced understanding and agreeable to the plan. Will continue to monitor for signs of infection or distress (2) Rubella non-immune status, antepartum Current Visit: No Status: Acute Plan to address problem: MMR (3) Elevated blood pressure affecting , antepartum Current Visit: Yes Status: Acute Plan to address problem: Patient with elevated blood pressure at time of admission. 24 hr urine resulted and elevated confirming PreE without severe features Reviewed with patient sever features including severe range BP, BRADY with scotoma, RUQ/epigastric pain. DIscussed if symptoms develop will require Mag SO4 for se izure prophylaxis BP WNL currently Will continue to monitor (4) Pre-eclampsia affecting puerperium Current Visit: Yes Status: Acute (5) Shortness of breath Current Visit: Yes Status: Acute Plan to address problem: H/o asthma. S/p respiratory intervention with imporvment of symptoms Discussed CXR for evaluation of pulmonary edema as patient has been on Magnesium Subjective - Subjective Principal diagnosis: PPROM Interval history: Patient is a at 34w3d admitted with PPROM. Voices no complaints at this time. SOB very early this AM, noting h/o asthma for which she occasionally uses an inhaler. +FM. Some leakage and irregular contractions. Denies vaginal bleeding. Patient reports: movement normal Objective - Vital Signs Vital Signs: Vital Signs - 12hr 03/31/21 03/31/21 03/31/21 23:15 23:18 23:20 Temperature Pulse Rate 73 94 H 77 Blood Pressure O2 Sat by Pulse 93 92 93 Oximetry O2 Sat by Pulse Oximetry [ Bilateral] 03/31/21 03/31/21 03/31/21 23:23 23:28 23:33 Temperature Pulse Rate 74 76 75 Blood Pressure O2 Sat by Pulse 93 93 93 Oximetry O2 Sat by Pulse Oximetry [ Bilateral] 03/31/21 03/31/21 03/31/21 23:38 23:43 23:48 Temperature Pulse Rate 76 76 78 Blood Pressure O2 Sat by Pulse 94 93 93 Oximetry O2 Sat by Pulse Oximetry [ Bilateral] 03/31/21 03/31/21 03/31/21 23:53 23:54 23:57 Temperature Pulse Rate 91 H 80 75 Blood Pressure 116/71 O2 Sat by Pulse 93 94 Oximetry O2 Sat by Pulse Oximetry [ Bilateral] 03/31/21 04/01/21 04/01/21 23:58 00:01 00:03 Temperature Pulse Rate 79 94 H 81 Blood Pressure O2 Sat by Pulse 97 94 93 Oximetry O2 Sat by Pulse Oximetry [ Bilateral] 04/01/21 04/01/21 04/01/21 00:08 00:09 00:13 Temperature Pulse Rate 76 84 77 Blood Pressure O2 Sat by Pulse 96 94 95 Oximetry O2 Sat by Pulse Oximetry [ Bilateral] 04/01/21 04/01/21 04/01/21 00:17 00:18 00:23 Temperature Pulse Rate 71 73 72 Blood Pressure O2 Sat by Pulse 94 95 95 Oximetry O2 Sat by Pulse Oximetry [ Bilateral] 04/01/21 04/01/21 04/01/21 00:28 00:29 00:33 Temperature Pulse Rate 74 74 72 Blood Pressure O2 Sat by Pulse 93 94 94 Oximetry O2 Sat by Pulse Oximetry [ Bilateral] 04/01/21 04/01/21 04/01/21 00:35 00:38 00:43 Temperature Pulse Rate 72 74 72 Blood Pressure O2 Sat by Pulse 94 94 93 Oximetry O2 Sat by Pulse Oximetry [ Bilateral] 04/01/21 04/01/21 04/01/21 00:44 00:48 00:49 Temperature Pulse Rate 73 76 73 Blood Pressure O2 Sat by Pulse 94 94 94 Oximetry O2 Sat by Pulse Oximetry [ Bilateral] 04/01/21 04/01/21 04/01/21 00:53 00:57 00:58 Temperature Pulse Rate 74 76 85 Blood Pressure 121/71 O2 Sat by Pulse 96 95 Oximetry O2 Sat by Pulse Oximetry [ Bilateral] 04/01/21 04/01/21 04/01/21 00:59 01:03 01:04 Temperature Pulse Rate 85 75 73 Blood Pressure O2 Sat by Pulse 94 95 94 Oximetry O2 Sat by Pulse Oximetry [ Bilateral] 04/01/21 04/01/21 04/01/21 01:08 01:13 01:14 Temperature Pulse Rate 83 81 80 Blood Pressure O2 Sat by Pulse 96 95 94 Oximetry O2 Sat by Pulse Oximetry [ Bilateral] 04/01/21 04/01/21 04/01/21 01:18 01:23 01:28 Temperature Pulse Rate 79 78 72 Blood Pressure O2 Sat by Pulse 96 95 96 Oximetry O2 Sat by Pulse Oximetry [ Bilateral] 04/01/21 04/01/21 04/01/21 01:32 01:33 01:38 Temperature Pulse Rate 74 70 71 Blood Pressure O2 Sat by Pulse 94 95 96 Oximetry O2 Sat by Pulse Oximetry [ Bilateral] 04/01/21 04/01/21 04/01/21 01:42 01:43 01:48 Temperature Pulse Rate 77 73 73 Blood Pressure O2 Sat by Pulse 94 97 97 Oximetry O2 Sat by Pulse Oximetry [ Bilateral] 04/01/21 04/01/21 04/01/21 01:53 01:57 01:58 Temperature Pulse Rate 75 70 71 Blood Pressure 112/65 O2 Sat by Pulse 96 97 Oximetry O2 Sat by Pulse Oximetry [ Bilateral] 04/01/21 04/01/21 04/01/21 02:03 02:08 02:13 Temperature Pulse Rate 77 77 75 Blood Pressure O2 Sat by Pulse 97 96 97 Oximetry O2 Sat by Pulse Oximetry [ Bilateral] 04/01/21 04/01/21 04/01/21 02:18 02:23 02:28 Temperature Pulse Rate 77 74 71 Blood Pressure O2 Sat by Pulse 96 96 97 Oximetry O2 Sat by Pulse Oximetry [ Bilateral] 04/01/21 04/01/21 04/01/21 02:33 02:38 02:43 Temperature Pulse Rate 73 71 93 H Blood Pressure O2 Sat by Pulse 98 97 96 Oximetry O2 Sat by Pulse Oximetry [ Bilateral] 04/01/21 04/01/21 04/01/21 02:46 02:48 02:53 Temperature Pulse Rate 64 86 74 Blood Pressure O2 Sat by Pulse 84 96 96 Oximetry O2 Sat by Pulse Oximetry [ Bilateral] 04/01/21 04/01/21 04/01/21 02:57 02:58 03:03 Temperature Pulse Rate 77 77 73 Blood Pressure 120/74 O2 Sat by Pulse 94 95 95 Oximetry O2 Sat by Pulse Oximetry [ Bilateral] 04/01/21 04/01/21 04/01/21 03:08 03:13 03:18 Temperature Pulse Rate 75 74 73 Blood Pressure O2 Sat by Pulse 96 96 96 Oximetry O2 Sat by Pulse Oximetry [ Bilateral] 04/01/21 04/01/21 04/01/21 03:23 03:27 03:28 Temperature Pulse Rate 75 78 72 Blood Pressure O2 Sat by Pulse 95 94 97 Oximetry O2 Sat by Pulse Oximetry [ Bilateral] 04/01/21 04/01/21 04/01/21 03:32 03:33 03:38 Temperature Pulse Rate 77 74 74 Blood Pressure O2 Sat by Pulse 94 96 95 Oximetry O2 Sat by Pulse Oximetry [ Bilateral] 04/01/21 04/01/21 04/01/21 03:43 03:48 03:53 Temperature Pulse Rate 83 83 74 Blood Pressure O2 Sat by Pulse 96 95 96 Oximetry O2 Sat by Pulse Oximetry [ Bilateral] 04/01/21 04/01/21 04/01/21 03:57 03:58 04:03 Temperature Pulse Rate 78 83 66 Blood Pressure 115/67 O2 Sat by Pulse 94 96 Oximetry O2 Sat by Pulse Oximetry [ Bilateral] 04/01/21 04/01/21 04/01/21 04:08 04:13 04:18 Temperature Pulse Rate 69 69 69 Blood Pressure O2 Sat by Pulse 96 96 96 Oximetry O2 Sat by Pulse Oximetry [ Bilateral] 04/01/21 04/01/21 04/01/21 04:23 04:28 04:33 Temperature Pulse Rate 68 69 68 Blood Pressure O2 Sat by Pulse 96 96 97 Oximetry O2 Sat by Pulse Oximetry [ Bilateral] 04/01/21 04/01/21 04/01/21 04:38 04:43 04:48 Temperature Pulse Rate 68 71 68 Blood Pressure O2 Sat by Pulse 96 96 96 Oximetry O2 Sat by Pulse Oximetry [ Bilateral] 04/01/21 04/01/21 04/01/21 04:53 04:57 04:58 Temperature Pulse Rate 69 67 86 Blood Pressure 109/61 O2 Sat by Pulse 95 99 Oximetry O2 Sat by Pulse Oximetry [ Bilateral] 04/01/21 04/01/21 04/01/21 05:03 05:04 05:08 Temperature Pulse Rate 75 81 74 Blood Pressure O2 Sat by Pulse 97 93 98 Oximetry O2 Sat by Pulse Oximetry [ Bilateral] 04/01/21 04/01/21 04/01/21 05:13 05:18 05:23 Temperature Pulse Rate 74 71 77 Blood Pressure O2 Sat by Pulse 98 97 98 Oximetry O2 Sat by Pulse Oximetry [ Bilateral] 04/01/21 04/01/21 04/01/21 05:28 05:33 05:38 Temperature Pulse Rate 72 79 75 Blood Pressure O2 Sat by Pulse 97 97 95 Oximetry O2 Sat by Pulse Oximetry [ Bilateral] 04/01/21 04/01/21 04/01/21 05:39 05:43 05:46 Temperature Pulse Rate 77 73 88 Blood Pressure O2 Sat by Pulse 94 96 94 Oximetry O2 Sat by Pulse Oximetry [ Bilateral] 04/01/21 04/01/21 04/01/21 05:48 05:53 05:57 Temperature Pulse Rate 71 69 72 Blood Pressure 111/69 O2 Sat by Pulse 96 96 Oximetry O2 Sat by Pulse Oximetry [ Bilateral] 04/01/21 04/01/21 04/01/21 05:58 06:03 06:08 Temperature Pulse Rate 69 76 69 Blood Pressure O2 Sat by Pulse 97 96 97 Oximetry O2 Sat by Pulse Oximetry [ Bilateral] 04/01/21 04/01/21 04/01/21 06:13 06:18 06:20 Temperature Pulse Rate 78 76 72 Blood Pressure O2 Sat by Pulse 97 96 94 Oximetry O2 Sat by Pulse Oximetry [ Bilateral] 04/01/21 04/01/21 04/01/21 06:23 06:28 06:31 Temperature Pulse Rate 75 75 74 Blood Pressure O2 Sat by Pulse 95 95 94 Oximetry O2 Sat by Pulse Oximetry [ Bilateral] 04/01/21 04/01/21 04/01/21 06:33 06:36 06:38 Temperature Pulse Rate 72 85 70 Blood Pressure O2 Sat by Pulse 96 94 94 Oximetry O2 Sat by Pulse Oximetry [ Bilateral] 04/01/21 04/01/21 04/01/21 06:42 06:43 06:48 Temperature Pulse Rate 78 91 H 81 Blood Pressure O2 Sat by Pulse 94 97 97 Oximetry O2 Sat by Pulse Oximetry [ Bilateral] 04/01/21 04/01/21 04/01/21 06:53 06:57 06:58 Temperature Pulse Rate 79 75 74 Blood Pressure 129/82 O2 Sat by Pulse 98 97 Oximetry O2 Sat by Pulse Oximetry [ Bilateral] 04/01/21 04/01/2122 07:03 07:08 07:13 Temperature Pulse Rate 78 77 84 Blood Pressure O2 Sat by Pulse 97 99 98 Oximetry O2 Sat by Pulse Oximetry [ Bilateral] 04/01/21 04/01/21 04/01/21 07:18 07:23 07:28 Temperature Pulse Rate 87 87 83 Blood Pressure O2 Sat by Pulse 99 97 98 Oximetry O2 Sat by Pulse Oximetry [ Bilateral] 04/01/21 04/01/21 04/01/21 07:32 07:33 07:38 Temperature 98.7 F Pulse Rate 87 91 H 84 Blood Pressure 128/87 O2 Sat by Pulse 98 97 Oximetry O2 Sat by Pulse Oximetry [ Bilateral] 04/01/21 04/01/21 04/01/21 07:43 07:45 07:48 Temperature Pulse Rate 82 79 Blood Pressure O2 Sat by Pulse 97 97 Oximetry O2 Sat by Pulse 97 Oximetry [ Bilateral] 04/01/21 04/01/21 04/01/21 07:53 07:57 07:58 Temperature Pulse Rate 76 81 94 H Blood Pressure 127/86 O2 Sat by Pulse 97 96 Oximetry O2 Sat by Pulse Oximetry [ Bilateral] 04/01/21 04/01/21 04/01/21 08:03 08:08 08:13 Temperature Pulse Rate 74 96 H 74 Blood Pressure O2 Sat by Pulse 98 98 98 Oximetry O2 Sat by Pulse Oximetry [ Bilateral] 04/01/21 04/01/21 04/01/21 08:18 08:23 08:28 Temperature Pulse Rate 77 91 H 95 H Blood Pressure O2 Sat by Pulse 98 98 98 Oximetry O2 Sat by Pulse Oximetry [ Bilateral] 04/01/21 04/01/21 04/01/21 08:33 08:53 08:58 Temperature Pulse Rate 84 86 86 Blood Pressure 123/75 O2 Sat by Pulse 98 98 98 Oximetry O2 Sat by Pulse Oximetry [ Bilateral] 04/01/21 04/01/21 04/01/21 09:03 09:08 09:13 Temperature Pulse Rate 81 90 90 Blood Pressure O2 Sat by Pulse 97 98 97 Oximetry O2 Sat by Pulse Oximetry [ Bilateral] 04/01/21 04/01/21 04/01/21 09:17 09:18 09:23 Temperature Pulse Rate 83 78 81 Blood Pressure O2 Sat by Pulse 94 96 99 Oximetry O2 Sat by Pulse Oximetry [ Bilateral] 04/01/21 04/01/21 04/01/21 09:25 09:28 09:34 Temperature Pulse Rate 79 79 83 Blood Pressure O2 Sat by Pulse 89 97 95 Oximetry O2 Sat by Pulse Oximetry [ Bilateral] 04/01/21 04/01/21 04/01/21 09:38 09:43 09:49 Temperature Pulse Rate 83 94 H 83 Blood Pressure O2 Sat by Pulse 97 97 98 Oximetry O2 Sat by Pulse Oximetry [ Bilateral] 04/01/21 04/01/21 04/01/21 09:53 09:58 10:03 Temperature Pulse Rate 79 85 80 Blood Pressure 120/77 O2 Sat by Pulse 97 97 98 Oximetry O2 Sat by Pulse Oximetry [ Bilateral] 04/01/21 04/01/21 10:09 10:13 Temperature Pulse Rate 89 84 Blood Pressure O2 Sat by Pulse 98 98 Oximetry O2 Sat by Pulse Oximetry [ Bilateral] - Exam Cardiovascular: Regular rate Lungs: Clear to auscultation, Normal air movement Abdomen: Present: soft FHR: category 1 Uterine Contraction Pattern: Absent Extremities: normal - Labs Labs: Abnormal Labs 03/30/21 03/31/21 03/31/21 21:30 00:59 01:47 WBC 11.8 H MCHC 35 H RDW 13.0 L Magnesium ALT Lactate Dehydrogenase Urine Creatinine 25.7 H Ur Total Protein 24 Hr 495.00 H Membranes Rupture Positive A 03/31/21 04/01/21 01:47 04:57 WBC MCHC RDW Magnesium 10.20 H ALT 6 L Lactate Dehydrogenase 257 H Urine Creatinine Ur Total Protein 24 Hr Membranes Rupture Laboratory Results - last 24 hr 03/31/21 03/31/21 04/01/21 00:59 11:20 04:57 Magnesium 10.20 H Urine Total Volume 4500 Urine Creatinine 25.7 H Ur Creatinine 24 Hour 1.2 Ur Total Protein 24 Hr 495.00 H Urine Total Protein 11 SARS-CoV-2 (PCR) Negative
--- NOTE | 2021-04-01 12:12 | XRay Report ---
CHEST 1 VIEW 04/01/2021 11:04 AM INDICATION / CLINICAL INFORMATION: SOB. COMPARISON: None available. FINDINGS: SUPPORT DEVICES: None. HEART / MEDIASTINUM: No significant abnormality. LUNGS / PLEURA: No significant pulmonary or pleural abnormality. No pneumothorax. ADDITIONAL FINDINGS: No significant additional findings. IMPRESSION: No acute abnormality. Signer Name: Melecio Greene MD Signed: 04/01/2021 12:08 PM Workstation Name: [id number]
[2021-04-01] MEDS ORDERED: OXYTOCIN DRIP 30 UNITS/500 ML BAG IV SCH (14:00)
[2021-04-01] MEDS: LACTATED RINGERS 1,000 ML IV SCH (14:25)
[2021-04-02] MEDS: AMPICILLIN/NS 1 GM/50 ML 1 GM/50 ML BAG IV SCH ×2 (04:09→08:15)
[2021-04-02] MEDS: LACTATED RINGERS 1,000 ML IV SCH ×2 (04:09→11:16)
--- NOTE | 2021-04-02 07:36 | Progress Note ---
Assessment and Plan A: 20 y.o. @ 34.4 wks, PPROM ~ 30 hours, IOL d/t Pre E and PPROM - Patient Problems (1) premature rupture of membranes Current Visit: Yes Status: Acute Plan to address problem: Continue with antibiotics during labor. Limit vaginal exams. Continue with IOL: Pitocin per protocol. Pain management: Epidural when pt request. Continue to monitor maternal temperature. Continue to monitor FHR, status through EFM. (2) Pre-eclampsia affecting puerperium Current Visit: Yes Status: Acute Plan to address problem: BPs WNL: continue to monitor for worsening s/sx of pre eclampsia. S/p Mag infusion. Discontinued d/t mag level of 10.2. Will continue to re-asses need to restart mag infusion during labor or after delivery. (3) with 34 completed weeks gestation Current Visit: No Status: Acute Plan to address problem: S/p BMZ X2. NICU at delivery. Continue to monitor status through EFM. Delayed cord clamping if not in distress at time of delivery. Subjective - Subjective Date of service: 04/02/21 Principal diagnosis: 34.4 wks, PPROM ~ 36 hours, IOL d/t Pre E Interval history: Pt would like an epidural for pain management. States that she does not need it right now, but would like it when she is feeling more ctxs. Denies BRADY, blurred vision, spots before her eyes, chest pain, shortness of breath, and upper abdominal pain. Patient reports: movement normal, contractions Objective - Vital Signs Vital Signs: Vital Signs - 12hr 04/01/21 04/01/21 04/01/21 19:35 19:40 19:41 Pulse Rate 76 77 75 Blood Pressure O2 Sat by Pulse 94 94 94 Oximetry 04/01/21 04/01/21 04/01/21 19:45 19:50 19:53 Pulse Rate 82 74 81 Blood Pressure O2 Sat by Pulse 98 98 94 Oximetry 04/01/21 04/01/21 04/01/21 19:55 20:00 20:01 Pulse Rate 78 77 78 Blood Pressure O2 Sat by Pulse 96 94 94 Oximetry 04/01/21 04/01/21 04/01/21 20:05 20:10 20:11 Pulse Rate 79 89 79 Blood Pressure O2 Sat by Pulse 97 97 93 Oximetry 04/01/21 04/01/21 04/01/21 20:15 20:18 20:20 Pulse Rate 81 81 81 Blood Pressure O2 Sat by Pulse 98 94 95 Oximetry 04/01/21 04/01/21 04/01/21 20:25 20:27 20:30 Pulse Rate 76 72 78 Blood Pressure 124/76 O2 Sat by Pulse 91 92 Oximetry 04/01/21 04/01/21 04/01/21 20:31 20:35 20:40 Pulse Rate 78 82 77 Blood Pressure O2 Sat by Pulse 93 95 94 Oximetry 04/01/21 04/01/21 04/01/21 20:45 21:05 21:07 Pulse Rate 101 H 75 90 Blood Pressure O2 Sat by Pulse 98 96 93 Oximetry 04/01/21 04/01/21 04/01/21 21:10 21:15 21:17 Pulse Rate 75 76 81 Blood Pressure O2 Sat by Pulse 96 96 91 Oximetry 04/01/21 04/01/21 04/01/21 21:20 21:22 21:25 Pulse Rate 75 83 83 Blood Pressure O2 Sat by Pulse 96 92 95 Oximetry 04/01/21 04/01/21 04/01/21 21:27 21:29 21:30 Pulse Rate 73 76 71 Blood Pressure 130/74 O2 Sat by Pulse 91 97 Oximetry 04/01/21 04/01/21 04/01/21 21:34 21:35 21:40 Pulse Rate 75 77 77 Blood Pressure O2 Sat by Pulse 93 96 95 Oximetry 04/01/21 04/01/21 04/01/21 21:41 21:45 21:50 Pulse Rate 76 71 76 Blood Pressure O2 Sat by Pulse 94 96 97 Oximetry 04/01/21 04/01/21 04/01/21 21:53 21:55 22:00 Pulse Rate 71 80 72 Blood Pressure O2 Sat by Pulse 94 93 93 Oximetry 04/01/21 04/01/21 04/01/21 22:05 22:10 22:15 Pulse Rate 77 73 78 Blood Pressure O2 Sat by Pulse 98 98 97 Oximetry 04/01/21 04/01/21 04/01/21 22:20 22:22 22:25 Pulse Rate 76 90 78 Blood Pressure O2 Sat by Pulse 99 84 96 Oximetry 04/01/21 04/01/21 04/01/21 22:47 22:48 22:52 Pulse Rate 82 75 70 Blood Pressure 134/62 O2 Sat by Pulse 81 L 94 Oximetry 04/01/21 04/01/21 04/01/21 22:53 22:57 22:59 Pulse Rate 71 71 76 Blood Pressure O2 Sat by Pulse 92 94 94 Oximetry 04/01/21 04/01/21 04/01/21 23:02 23:06 23:07 Pulse Rate 68 75 69 Blood Pressure O2 Sat by Pulse 96 88 98 Oximetry 04/01/21 04/01/21 04/01/21 23:12 23:17 23:19 Pulse Rate 71 70 93 H Blood Pressure O2 Sat by Pulse 96 97 85 Oximetry 04/01/21 04/01/21 04/01/21 23:22 23:24 23:27 Pulse Rate 70 72 67 Blood Pressure 128/74 O2 Sat by Pulse 95 93 93 Oximetry 04/01/21 04/01/21 04/01/21 23:31 23:32 23:37 Pulse Rate 64 65 68 Blood Pressure O2 Sat by Pulse 94 96 97 Oximetry 04/01/21 04/01/21 04/01/21 23:42 23:47 23:52 Pulse Rate 68 65 65 Blood Pressure O2 Sat by Pulse 97 96 95 Oximetry 04/01/21 04/02/21 04/02/21 23:57 00:00 00:02 Pulse Rate 68 66 66 Blood Pressure O2 Sat by Pulse 95 94 96 Oximetry 04/02/21 04/02/21 04/02/21 00:07 00:12 00:13 Pulse Rate 69 68 77 Blood Pressure O2 Sat by Pulse 96 97 94 Oximetry 04/02/21 04/02/21 04/02/21 00:17 00:22 00:27 Pulse Rate 62 68 64 Blood Pressure 129/75 O2 Sat by Pulse 95 96 96 Oximetry 04/02/21 04/02/21 04/02/21 00:32 00:37 00:42 Pulse Rate 67 67 73 Blood Pressure O2 Sat by Pulse 95 97 96 Oximetry 04/02/21 04/02/21 04/02/21 00:46 00:47 00:56 Pulse Rate 70 82 Blood Pressure O2 Sat by Pulse 94 73 L 35 L Oximetry 04/02/21 04/02/21 04/02/21 00:57 01:02 01:07 Pulse Rate 84 72 73 Blood Pressure O2 Sat by Pulse 82 L 100 97 Oximetry 04/02/21 04/02/21 04/02/21 01:10 01:12 01:17 Pulse Rate 71 67 69 Blood Pressure O2 Sat by Pulse 94 99 98 Oximetry 04/02/21 04/02/21 04/02/21 01:19 01:22 01:24 Pulse Rate 82 71 69 Blood Pressure O2 Sat by Pulse 90 93 94 Oximetry 04/02/21 04/02/21 04/02/21 01:27 01:32 01:33 Pulse Rate 69 78 62 Blood Pressure 124/78 O2 Sat by Pulse 92 93 94 Oximetry 04/02/21 04/02/21 04/02/21 01:37 01:42 01:47 Pulse Rate 64 68 69 Blood Pressure O2 Sat by Pulse 92 92 91 Oximetry 04/02/21 04/02/21 04/02/21 01:52 01:57 02:02 Pulse Rate 91 H 73 74 Blood Pressure O2 Sat by Pulse 90 91 91 Oximetry 04/02/21 04/02/21 04/02/21 02:07 02:12 02:17 Pulse Rate 75 75 74 Blood Pressure O2 Sat by Pulse 91 92 92 Oximetry 04/02/21 04/02/21 04/02/21 02:22 02:27 02:32 Pulse Rate 77 78 84 Blood Pressure 118/69 O2 Sat by Pulse 92 93 97 Oximetry 04/02/21 04/02/21 04/02/21 02:36 02:37 02:42 Pulse Rate 88 84 77 Blood Pressure O2 Sat by Pulse 93 96 95 Oximetry 04/02/21 04/02/21 04/02/21 02:43 02:47 02:49 Pulse Rate 81 74 77 Blood Pressure O2 Sat by Pulse 94 95 93 Oximetry 04/02/21 04/02/21 04/02/21 02:52 02:57 02:59 Pulse Rate 78 73 72 Blood Pressure O2 Sat by Pulse 96 95 94 Oximetry 04/02/21 04/02/21 04/02/21 03:02 03:07 03:12 Pulse Rate 72 73 72 Blood Pressure O2 Sat by Pulse 95 95 94 Oximetry 04/02/21 04/02/21 04/02/21 03:17 03:20 03:22 Pulse Rate 71 76 73 Blood Pressure O2 Sat by Pulse 94 94 94 Oximetry 04/02/21 04/02/21 04/02/21 03:27 03:32 03:37 Pulse Rate 71 75 76 Blood Pressure 111/67 O2 Sat by Pulse 94 94 94 Oximetry 04/02/21 04/02/21 04/02/21 03:42 03:43 03:47 Pulse Rate 89 78 73 Blood Pressure O2 Sat by Pulse 95 94 93 Oximetry 04/02/21 04/02/21 04/02/21 03:49 03:52 03:57 Pulse Rate 75 82 74 Blood Pressure O2 Sat by Pulse 93 96 95 Oximetry 04/02/21 04/02/21 04/02/21 03:58 04:02 04:04 Pulse Rate 76 80 82 Blood Pressure O2 Sat by Pulse 94 93 94 Oximetry 04/02/21 04/02/21 04/02/21 04:07 04:10 04:12 Pulse Rate 78 75 74 Blood Pressure O2 Sat by Pulse 95 94 94 Oximetry 04/02/21 04/02/21 04/02/21 04:15 04:17 04:21 Pulse Rate 77 77 80 Blood Pressure O2 Sat by Pulse 94 95 94 Oximetry 04/02/21 04/02/21 04/02/21 04:22 04:27 04:29 Pulse Rate 75 77 75 Blood Pressure 112/66 O2 Sat by Pulse 94 95 Oximetry 04/02/21 04/02/21 04/02/21 04:32 04:37 04:40 Pulse Rate 72 77 73 Blood Pressure O2 Sat by Pulse 94 94 94 Oximetry 04/02/21 04/02/21 04/02/21 04:42 04:46 04:47 Pulse Rate 76 77 74 Blood Pressure O2 Sat by Pulse 94 94 95 Oximetry 04/02/21 04/02/21 04/02/21 04:52 04:57 04:58 Pulse Rate 72 75 75 Blood Pressure O2 Sat by Pulse 95 95 94 Oximetry 04/02/21 04/02/21 04/02/21 05:02 05:03 05:07 Pulse Rate 78 75 92 H Blood Pressure O2 Sat by Pulse 94 94 94 Oximetry 04/02/21 04/02/21 04/02/21 05:08 05:12 05:13 Pulse Rate 86 80 81 Blood Pressure O2 Sat by Pulse 93 94 94 Oximetry 04/02/21 04/02/21 04/02/21 05:17 05:18 05:22 Pulse Rate 78 76 86 Blood Pressure O2 Sat by Pulse 94 94 95 Oximetry 04/02/21 04/02/21 04/02/21 05:24 05:27 05:28 Pulse Rate 77 79 81 Blood Pressure 119/61 O2 Sat by Pulse 94 95 Oximetry 04/02/21 04/02/21 04/02/21 05:43 05:44 05:49 Pulse Rate 53 L 83 77 Blood Pressure O2 Sat by Pulse 89 83 L 96 Oximetry 04/02/21 04/02/21 04/02/21 05:51 05:54 05:57 Pulse Rate 77 76 75 Blood Pressure O2 Sat by Pulse 93 94 94 Oximetry 04/02/21 04/02/21 04/02/21 05:59 06:03 06:04 Pulse Rate 70 72 83 Blood Pressure O2 Sat by Pulse 94 94 94 Oximetry 04/02/21 04/02/21 04/02/21 06:09 06:14 06:19 Pulse Rate 80 73 71 Blood Pressure O2 Sat by Pulse 97 97 95 Oximetry 04/02/21 04/02/21 04/02/21 06:24 06:27 06:29 Pulse Rate 73 71 71 Blood Pressure 123/60 O2 Sat by Pulse 97 95 Oximetry 04/02/21 04/02/21 04/02/21 06:34 06:39 06:43 Pulse Rate 75 73 75 Blood Pressure O2 Sat by Pulse 96 96 94 Oximetry 04/02/21 04/02/21 04/02/21 06:44 06:49 06:50 Pulse Rate 72 72 74 Blood Pressure O2 Sat by Pulse 96 95 94 Oximetry 04/02/21 04/02/21 04/02/21 06:54 06:55 06:59 Pulse Rate 71 73 76 Blood Pressure O2 Sat by Pulse 95 94 95 Oximetry 04/02/21 04/02/21 04/02/21 07:00 07:04 07:07 Pulse Rate 81 79 79 Blood Pressure O2 Sat by Pulse 93 96 94 Oximetry 04/02/21 04/02/21 04/02/21 07:09 07:14 07:19 Pulse Rate 70 69 70 Blood Pressure O2 Sat by Pulse 96 95 94 Oximetry 04/02/21 04/02/21 04/02/21 07:24 07:26 07:27 Pulse Rate 71 72 77 Blood Pressure 127/80 O2 Sat by Pulse 94 93 Oximetry 04/02/21 07:29 Pulse Rate 75 Blood Pressure O2 Sat by Pulse 95 Oximetry - Exam Narrative Exam: Per RN, pt had a cervical exam @ 0600am and was found to be 3/70/-1. Will limit vaginal exams. Breasts: deferred Cardiovascular: Regular rate Lungs: Normal air movement Abdomen: Present: normal appearance, soft FHR: category 1 Uterine Contraction Monitor Mode: External Cervical Dilatation: 3 (Per overnight associate RN) Cervical Effacement Percentage: 70 station: -1 Uterine Contraction Pattern: Regular Uterine Tone Measurement Phase: Resting Uterine Contraction Intensity: Moderate Extremities: normal Deep Tendon Reflex Grade: Normal +2 - Labs Labs: Abnormal Labs 03/30/21 03/31/21 03/31/21 21:30 00:59 01:47 WBC 11.8 H MCHC 35 H RDW 13.0 L Magnesium ALT Lactate Dehydrogenase Urine Creatinine 25.7 H Ur Total Protein 24 Hr 495.00 H Membranes Rupture Positive A 03/31/21 04/01/21 01:47 04:57 WBC MCHC RDW Magnesium 10.20 H ALT 6 L Lactate Dehydrogenase 257 H Urine Creatinine Ur Total Protein 24 Hr Membranes Rupture
[2021-04-02] MEDS ORDERED: OXYTOCIN DRIP 30,000 MILLIUNITS/500 ML BAG IV ONE (08:00)
[2021-04-02] MEDS: NITROFURANTOIN MONOHYD/M-CRYST 100 MG CAP PO SCH (10:09)
[2021-04-02] MEDS: PRENATAL VIT27-FE FUMARATE-FOLIC ACID VIT TAB PO SCH (10:09)
--- NOTE | 2021-04-02 12:17 | Procedure Note ---
OB Delivery Note - Delivery Date of Delivery: 04/02/21 [employer] Machine Operator: DERRICK NOVAK Estimated blood loss: 100cc - Vaginal Delivery presentation: vertex Delivery position: OA Intrapartum events: labor-<37 weeks, PROM->1hr before delivery, preeclampsia Delivery induction: oxytocin Delivery augmentation: pitocin Delivery monitor: external FHT, external uterine Route of delivery: Delivery placenta: spontaneous Delivery cord: 3 umbilical vessels Episiotomy: none Delivery laceration: other (vaginal wall abrasions.) Anesthesia: none Delivery comments: Pt with urge to push. C/'C+2 with BBOW. SROM @ delivery for clear fluid. viable male infant. to mother's abdomen for skin to skin. Cord cut and clamped after 45 seconds. handed to NICU team for evaluation. Spontaneous delivery of placenta, intact, 3 vessels noted. Placenta to pathology d/t rupture, delivery, and pre eclampsia. Fundus firm, minimal bleeding noted. Perineum and vagina inspected, vaginal wall abrasions noted. Consulted with Dr. Verma. Will not restart mag at this time as patient is asymptomatic and has normal BP's (Mag level on 04/01 was 10.2 and mag infusion was stopped at that time). Sponges, instruments counted and correct. Apgars 8,9. Weight 4-5. EBL 100ml. Infant taken to NICU and patient left in care of nurse in stable condition. - A at 1 minute: 8 at 5 minutes: 8 (4-5) Gender: Male
[2021-04-02] MEDS ORDERED: IBUPROFEN 800 MG TAB PO NR (13:00)
[2021-04-02] MEDS ORDERED: diphenhydrAMINE 25 MG CAP PO PRN (14:17)
[2021-04-02] MEDS ORDERED: oxyCODONE /ACETAMINOPHEN 5-325MG TAB PO PRN (14:17)
[2021-04-02] MEDS ORDERED: PROMETHAZINE 25 MG RECT SUPP PR PRN (14:17)
[2021-04-02] MEDS ORDERED: OXYTOCIN DRIP 30 UNITS/500 ML BAG IV SCH (14:17)
[2021-04-02] MEDS ORDERED: ACETAMINOPHEN 325 MG TAB PO PRN (14:17)
[2021-04-02] MEDS ORDERED: BENZOCAINE/MENTHOL 20/0.5% TOP SPRAY 56 GM TP PRN (14:17)
[2021-04-02] MEDS ORDERED: PROMETHAZINE 25 MG TAB PO PRN (14:17)
[2021-04-02] MEDS ORDERED: ONDANSETRON 4 MG/2 ML INJ IV PRN (14:17)
[2021-04-02] MEDS ORDERED: MAGNESIUM HYDROXIDE (MOM) ORAL LIQD UDC PO PRN (14:17)
[2021-04-02] MEDS ORDERED: LANOLIN/ZINC/DIMETHICONE (LANSINOH) 7 GM TP PRN ×2 (14:17)
[2021-04-02] MEDS ORDERED: WITCH HAZEL/ GLYCERIN PAD TP PRN (14:17)
[2021-04-02] MEDS: IBUPROFEN 800 MG TAB PO SCH ×2 (14:51→20:29)
[2021-04-02] MEDS: DOCUSATE SODIUM 100 MG CAP PO SCH (22:54)
[2021-04-03 01:24] LABS: Hematocrit 29.9 % (30.3-42.9)
[2021-04-03] MEDS: IBUPROFEN 800 MG TAB PO SCH ×2 (04:47→16:14)
[2021-04-03] MEDS ORDERED: TETANUS,DIPH,PERTUSS(ACELL) VACCINE 0.5 ML SYRINGE IM ONE (06:00)
--- NOTE | 2021-04-03 08:14 | Progress Note ---
Assessment and Plan Pt doing well, in NICU holding baby. No complaints or concerns at this time. Plans to breast feed, and denies desires for BC.VSSAF. H/H 10.0/29.9 - Patient Problems (1) (normal spontaneous vaginal delivery) Current Visit: Yes Status: Acute Plan to address problem: Continue pathway. Plan to discharge tomorrow. (2) Pre-eclampsia affecting puerperium Current Visit: Yes Status: Acute Plan to address problem: Continue to monitor BP closely Denies s/s of PreE Subjective - Subjective Date of service: 04/03/21 Principal diagnosis: day #1 s/p w/ pre-e Patient reports: appetite normal, voiding normally, pain well controlled, ambulating normally, no dizzy ambulation, no nauseated : in NICU Objective - Vital Signs Latest vital signs: Vital Signs Temp Pulse Resp BP BP Pulse Ox Pulse Ox 04/03/21 01:15 98.1 F 72 20 123/77 96 04/02/21 22:45 99 04/02/21 20:25 98.6 F 69 20 106/78 91 04/02/21 14:17 98.6 F 86 16 140/86 99 99 04/02/21 13:23 75 132/85 04/02/21 13:21 68 33 L 04/02/21 13:18 73 99 04/02/21 13:13 68 87 04/02/21 13:08 76 95 04/02/21 12:25 77 70 L 04/02/21 12:24 77 71 L 04/02/21 12:19 91 H 78 L 04/02/21 12:14 74 94 04/02/21 12:13 82 89 04/02/21 12:09 97 H 100 04/02/21 12:06 57 L 04/02/21 12:04 83 95 04/02/21 12:03 86 129/74 04/02/21 11:59 86 93 04/02/21 11:58 83 95 04/02/21 11:53 86 100 04/02/21 11:52 91 04/02/21 11:47 90 59 L 04/02/21 11:42 84 84 04/02/21 11:41 70 L 04/02/21 11:37 91 H 66 L 04/02/21 11:36 63 L 04/02/21 11:32 84 85 04/02/21 11:30 87 74 L 04/02/21 11:28 80 139/87 04/02/21 11:26 212 H 86 04/02/21 11:25 26 L 92 04/02/21 11:21 83 100 04/02/21 11:19 93 H 92 04/02/21 11:16 89 97 04/02/21 11:14 87 94 04/02/21 11:11 91 H 97 04/02/21 11:06 86 90 04/02/21 10:56 69 100 04/02/21 10:53 80 78 L 04/02/21 10:51 85 85 04/02/21 10:46 90 96 04/02/21 10:41 75 93 04/02/21 10:38 78 94 04/02/21 10:36 84 93 04/02/21 10:31 76 94 04/02/21 10:22 83 97 04/02/21 10:17 77 98 04/02/21 10:15 86 93 04/02/21 10:12 85 93 04/02/21 10:10 87 93 04/02/21 10:07 86 97 04/02/21 10:03 80 94 04/02/21 10:02 86 98 04/02/21 09:57 60 85 04/02/21 09:30 95 H 93 04/02/21 09:27 89 123/73 91 04/02/21 09:24 86 93 04/02/21 09:22 81 91 04/02/21 09:18 80 94 04/02/21 09:17 85 94 04/02/21 09:13 83 93 04/02/21 09:12 86 95 04/02/21 09:07 84 93 04/02/21 09:05 98 04/02/21 09:02 90 94 04/02/21 08:57 89 91 04/02/21 08:53 93 H 94 04/02/21 08:52 87 99 04/02/21 08:47 90 96 04/02/21 08:42 99 H 94 04/02/21 08:23 81 92 04/02/21 08:21 83 94 04/02/21 08:18 84 04/02/21 08:16 91 98 Intake and Output 04/02/21 04/03/21 04/03/21 23:59 07:59 15:59 Intake Total 600 360 Output Total 500 Balance 100 360 Intake: Oral 600 360 Output: Urine 500 Void 500 Other: Total, Intake Amount 240 120 Total, Output Amount 300 # Voids Void 1 - Exam Breasts: Present: normal Abdomen: Present: normal appearance, soft Uterus: Present: normal, firm Extremities: Present: normal - Labs Labs: Abnormal lab results 04/03/21 Range/Units 00:59 Hgb 10.0 L (10.1-14.3) gm/dl Hct 29.9 L (30.3-42.9) %
[2021-04-03] MEDS ORDERED: PRENATAL VIT27-FE FUMARATE-FOLIC ACID VIT TAB PO SCH (10:00)
[2021-04-04] MEDS: IBUPROFEN 800 MG TAB PO SCH ×2 (00:31→16:32)
[2021-04-04] MEDS: DOCUSATE SODIUM 100 MG CAP PO SCH ×2 (00:33→22:20)
--- NOTE | 2021-04-04 08:50 | Event Note ---
Date: 04/04/21 (Mother in NICU) Pt visiting infant in NICU. Will come and assess once she is back in her room.
--- NOTE | 2021-04-04 13:37 | Progress Note ---
Assessment and Plan A: 20 y.o. s/p , pre eclampsia. - Patient Problems (1) Pre-eclampsia affecting puerperium Current Visit: Yes Status: Acute Plan to address problem: Continue at this time with care. Will hold off on restarting magnesium at this time. - BPs remain WNL. Will continue to monitor blood pressures. Continue to monitor for worsening s/sx of pre eclampsia. Labetalol 100mg BID started. (2) Heart palpitations Current Visit: Yes Status: Acute Plan to address problem: EKG ordered. Labs ordered. Will consult cardiology if needed. (3) Shortness of breath Current Visit: Yes Status: Acute Plan to address problem: Will continue to monitor. O2 saturations have been 96-99% on room air. Subjective - Subjective Date of service: 04/04/21 Principal diagnosis: day #2 s/p w/ pre-e Interval history: Pt with c/o heart palpitations and some mild shortness of breath when she lays down in bed. Denies BRADY, blurred vision, spots before her eyes, chest pain, upper abdominal pain. Patient reports: appetite normal, voiding normally, pain well controlled, flatus : doing well, in NICU Objective - Vital Signs Latest vital signs: Vital Signs Temp Pulse Resp BP BP Pulse Ox Pulse Ox 04/04/21 10:00 98.2 F 73 18 134/72 99 04/04/21 05:09 98.0 F 57 L 20 132/65 99 04/04/21 00:39 98.2 F 58 L 20 143/85 98 04/03/21 22:19 98 04/03/21 17:20 98.4 F 65 18 135/82 96 04/03/21 17:19 98.4 F 59 L 18 147/93 95 Intake and Output 04/03/21 04/04/21 04/04/21 22:59 06:59 14:59 Intake Total 240 Balance 240 Intake: Oral 240 Other: Total, Intake Amount 240 # Voids Void 1 - Exam Narrative Exam: Pt has had an O2 saturation of 96-99% on room air and was speaking to provider without difficulty. Her blood pressure ranges have been 130's/70's. Consulted with Dr. Verma. Will order EKG and labs. Breasts: Present: deferred Cardiovascular: Present: Regular rate Lungs: Present: Normal air movement Abdomen: Present: normal appearance, soft Vulva: both: normal Uterus: Present: normal, firm Extremities: Present: normal Deep Tendon Reflex Grade: Normal +2
[2021-04-04 14:59] LABS: Alanine Aminotransferase 19 units/L (7-56); Hematocrit 34.6 % (30.3-42.9); Hemoglobin 11.7 gm/dl (10.1-14.3); Mean Corpuscular HGB Conc 34 % (30-34); Mean Corpuscular Volume 92 fl (79-97); Platelet Count 303 K/mm3 (140-440); Red Blood Count 3.78 M/mm3 (3.65-5.03); Red Cell Distribution Width 13.2 % (13.2-15.2); Uric Acid 4.3 mg/dL (3.5-7.6)
--- NOTE | 2021-04-05 08:21 | Discharge Summary ---
Providers - Providers Date of Admission: 03/31/21 00:35 Date of discharge: 04/05/21 Attending physician: RAYRAY GLASS Primary care physician: RAYRAY GLASS Hospitalization Reason for admission: labor Condition: Good Pertinent studies: post delivery H&h 11.7/34.6 Procedures: Hospital course: and course complicated by PPROM Disposition: 01 HOME / SELF CARE / HOMELESS Final Discharge Diagnosis (Prints w/discharge instructions): Time spent for discharge: 20 - Discharge Diagnoses (1) (normal spontaneous vaginal delivery) Status: Acute (2) Pre-eclampsia affecting puerperium Status: Acute Core Measure Documentation - Palliative Care Palliative Care/ Comfort Measures: Not Applicable - Core Measures Any of the following diagnoses?: none Exam - Constitutional Vitals: Temp Pulse Resp BP Pulse Ox 98.1 F 62 20 113/78 97 04/05/21 00:13 04/05/21 04:51 04/05/21 00:13 04/05/21 04:51 04/05/21 04:51 General appearance: Present: no acute distress, well-nourished - EENT Eyes: Present: PERRL ENT: hearing intact, clear oral mucosa - Neck Neck: Present: supple, normal ROM - Respiratory Respiratory effort: normal Respiratory: bilateral: CTA - Cardiovascular Rhythm: regular Heart Sounds: Absent: rub, click - Extremities Extremities: No edema Peripheral Pulses: within normal limits - Abdominal General gastrointestinal: Present: soft, non-tender, non-distended, normal bowel sounds Female genitourinary: Present: normal - Integumentary Integumentary: Present: clear, warm, dry - Musculoskeletal Musculoskeletal: gait normal, strength equal bilaterally - Psychiatric Psychiatric: appropriate mood/affect, intact judgment & insight - Neurologic Neurologic: CNII-XII intact, moves all extremities - Additional findings Additional findings: Lochia scant, fundus firm Plan Activity: no restrictions Diet: regular Follow up with: RAYRAY GLASS MD [Primary Care Provider] - 7 Days (Congratulations! Please call [phone] to schedule your son's circumcision in when he is released from the hospital & Schedule your blood pressure check in 1 week. Call for any questions or concerns. ) Prescriptions: Lidocain2.5%/Prilocai2.5% [Emla] 5 gm TP ONCE PRN #1 tube PRN Reason: Pain labetaloL [Labetalol 100mg TAB] 100 mg PO BID #60 Ibuprofen [Motrin 800 MG tab] 800 mg PO Q8HR PRN #30 tablet PRN Reason: Pain
[2021-04-05] MEDS: DOCUSATE SODIUM 100 MG CAP PO SCH (10:19)
--- NOTE | 2021-04-05 10:25 | Electrocardiograph Report ---
[facility] Test Date: 2021-04-04 Test Time: 13:48:43 Pat Name: DIVYA EDWARDS Department: Room: 2139 1 Gender: F [employer]: OTONIEL : 2000 Requested By: DERRICK NOVAK Order Number: [id number] Reading MD: Chance Patel Measurements Intervals [place] Rate: 69 P: 53 LA: 135 QRS: 69 QRSD: 78 T: 44 QT: 385 QTc: 414 Interpretive Statements Sinus rhythm No previous ECG available for comparison Electronically Signed On 04-05-2021 10:24:58 EST by Chance Patel
[2021-04-05 14:10] VITALS: BP 105/75
== END 2021-04-05 14:10 | disposition home or self-care (01) | DRG 805 ==
LOC: TRG 21:18 → APU 21:20 → TRG 03-31 00:33 → LD 03-31 00:35 → OB 04-02 13:37
PROVIDERS: ADMIT Obstetrics & Gynecology; ATTEND Obstetrics & Gynecology
PROC: 10E0XZZ Delivery of Products of Conception, External Approach (ICD-10-PCS; principal; 2021-04-02)
PROC: 3E033VJ Introduction of Other Hormone into Peripheral Vein, Percutaneous Approach (ICD-10-PCS; 2021-04-02)
PROC: 3E0234Z Introduction of Serum, Toxoid and Vaccine into Muscle, Percutaneous Approach (ICD-10-PCS; 2021-04-03)
DX: O42.013 Preterm premature rupture of membranes, onset of labor within 24 hours of rupture, third trimester (principal); O60.14X0 Preterm labor third trimester with preterm delivery third trimester, not applicable or unspecified; Z37.0 Single live birth; Z3A.34 34 weeks gestation of pregnancy; O14.95 Unspecified pre-eclampsia, complicating the puerperium; Z20.822 Contact with and (suspected) exposure to COVID-19; Z23 Encounter for immunization; O71.82 Other specified trauma to perineum and vulva; Z91.040 Latex allergy status; Z91.048 Other nonmedicinal substance allergy status; Z91.013 Allergy to seafood; Z91.010 Allergy to peanuts
CPT/HCPCS: 36415; 59020; 59025; 71045; 82565; 82570; 83615; 83735; 84112; 84156; 84450; 84460; 84550; 85014; 85018; 85027; 86592; 86850; 86900; 86901; 87116; 88307; 93005; 93010; 96360; 96365; 96367; 99211; G0378; G0463; J0290; J0702; J2405; J2590; J3475; J7120; U0003